=== PATIENT | male | born 1965 | race Caucasian/White ===

== ENCOUNTER 2017-11-23 10:43 | Inpatient (IN) | payer OTHER, SELFPAY ==
--- NOTE | 2017-11-23 11:37 | EKG ---
Test Date: 2017-11-23 Test Time: 10:55:01 Class A Truck Driver: GUERDA MEASUREMENT RESULTS: Intervals: Rate: 57 NM: 142 QRSD: 76 QT: 414 QTc: 402 [place]: P: 29 NM: 142 QRS: -20 T: 84 INTERPRETIVE STATEMENTS: Sinus bradycardia Inferior infarct, age undetermined Abnormal ECG No previous ECG available for comparison Electronically Signed On 11-23-17 11:36:29 CDT by Rodolfo Pierson
[2017-11-23 11:59] LABS: Protime INR 0.97
[2017-11-23 12:11] LABS: Hematocrit 43.1 % (39.6-49.0); MCV 86.5 fL (80-100); RBC Red Blood Cell Count 4.98 M/uL (4.33-5.43)
[2017-11-23 12:12] LABS: Basophils % 0.5 % (0-1.3); Eosinophils % 4.9 % (0-4.4); MCH 29.9 pg (27.0-35.0); Monocytes % 6.4 % (3.3-12.3)
[2017-11-23 12:13] LABS: Absolute Lymphocytes (CBC) 1.9 K/uL (0.7-4.9); Absolute Neutrophil 5.4 K/uL (1.8-8.0)
[2017-11-23 12:14] LABS: Absolute Monocytes 0.5 K/uL (0.1-1.3)
[2017-11-23 12:15] LABS: Magnesium 2.1 mg/dL (1.8-2.4); Potassium 3.8 mmol/L (3.5-5.1)
--- NOTE | 2017-11-23 12:25 | RAD REPORT ---
EXAM DESCRIPTION: RAD - Chest Single View - 11/23/2017 11:31 am CLINICAL HISTORY: PAIN Chest pain. COMPARISON: No comparisons FINDINGS: Portable technique limits examination quality. The lungs are grossly clear. The heart is normal in size. No displaced fractures.Sternotomy wires. IMPRESSION: No acute intrathoracic process suspected.
--- NOTE | 2017-11-23 12:36 | ER ---
Nurse's Notes [facility] Name: Archie Cortes Age: 52 yrs Sex: Male : 1965 Arrival Date: 11/23/2017 Time: 10:44 Bed 20 Private MD: Diagnosis: Unstable angina Presentation: 11/23 10:48 Presenting complaint: Patient states: c/o chest pressure that radiates to the left jaw. rb1 Pain is 6/10. Feels lightheaded, dizzy and is diaphoretic. Transition of care: patient was not received from another setting of care. Risk Assessment: Do you want to hurt yourself or someone else? Patient reports no desire to harm self or others. Initial Sepsis Screen: Does the patient meet any 2 criteria? No. Patient's initial sepsis screen is negative. Does the patient have a suspected source of infection? No. Patient's initial sepsis screen is negative. Care prior to arrival: None. 10:48 Method Of Arrival: Wheelchair rb1 10:48 Acuity: TATIANA 3 rb1 10:48 Onset of symptoms was November 23, 2017 at 05:30. rb1 Triage Assessment: 10:48 General: Appears uncomfortable, Behavior is calm, cooperative, Denies fever. Pain: rb1 Complains of pain in mid-sternal area Pain radiates to left jaw Pain currently is 6 out of 10 on a pain scale. Quality of pain is described as pressure. Neuro: Level of Consciousness is awake, alert, obeys commands, Oriented to person, place, time, situation. Neuro: Reports dizziness, lightheaded. Cardiovascular: Capillary refill < 3 seconds is brisk in bilateral fingers Rhythm is sinus rhythm. Respiratory: Airway is patent Respiratory effort is even, unlabored, Respiratory pattern is regular, symmetrical. GI: No signs and/or symptoms were reported involving the gastrointestinal system. : No signs and/or symptoms were reported regarding the genitourinary system. Derm: Skin is diaphoretic, Skin is normal, Skin temperature is warm. Musculoskeletal: Range of motion: intact in all extremities. Historical: - Allergies: 10:48 No Known Allergies; rb1 - Home Meds: 10:48 Coreg Oral [Active]; Lisinopril Oral [Active]; Plavix Oral [Active]; atorvastatin oral rb1 oral [Active]; - PMHx: 10:48 Myocardial infarction; rb1 - PSHx: 10:48 CABG; Knee surgery; rb1 - Immunization history:: Adult Immunizations up to date. - Social history:: Smoking status: Patient uses tobacco products, SMOKES MARIJUANA DAILY. - Ebola Screening: : Patient negative for fever greater than or equal to 101.5 degrees Fahrenheit, and additional compatible Ebola Virus Disease symptoms. Screenin:48 Abuse screen: Denies threats or abuse. Nutritional screening: No deficits noted. rb1 Tuberculosis screening: No symptoms or risk factors identified. Fall Risk None identified. Assessment: 10:48 General: See triage assessment. rb1 10:48 Pain: Pain began 0530 this morning. rb1 11:47 Reassessment: Patient appears in no apparent distress at this time. Patient and/or rb1 family updated on plan of care and expected duration. Pain level reassessed. Patient is alert, oriented x 3, equal unlabored respirations, skin warm/dry/pink. Patient states feeling better. 12:47 Reassessment: Patient appears in no apparent distress at this time. No changes from rb1 previously documented assessment. Family at bedside. 13:35 Reassessment: Patient appears in no apparent distress at this time. Patient and/or rb1 family updated on plan of care and expected duration. Pain level reassessed. Patient is alert, oriented x 3, equal unlabored respirations, skin warm/dry/pink. Call light within reach. 14:15 Reassessment: Patient appears in no apparent distress at this time. No changes from rb1 previously documented assessment. 14:35 Reassessment: Called report to MEHUL Negrete. Information from the [facility] was given. All rb1 questions asked and answered. 15:15 Reassessment: Patient appears in no apparent distress at this time. Patient and/or rb1 family updated on plan of care and expected duration. Pain level reassessed. Patient is alert, oriented x 3, equal unlabored respirations, skin warm/dry/pink. Pt. is waiting to be taken to the floor. We have to wait for someone to be available to transport the pt. Vital Signs: 10:48 BP 152 / 86; Pulse 64; Resp 15; Pulse Ox 98% on R/A; Weight 82.55 kg; Height 5 ft. 4 rb1 in. (162.56 cm); Pain 6/10; 11:47 BP 141 / 69; Pulse 57; Resp 12; Pulse Ox 98% on R/A; rb1 12:45 BP 140 / 86; Pulse 68; Resp 13; Pulse Ox 97% ; rb1 13:38 BP 131 / 80; Pulse 72; Resp 14; Pulse Ox 97% on R/A; rb1 14:15 BP 122 / 79; Pulse 71; Resp 21; Pulse Ox 97% on R/A; rb1 15:15 BP 122 / 80; Pulse 68; Resp 19; Pulse Ox 98% on R/A; rb1 10:48 Body Mass Index 31.24 (82.55 kg, 162.56 cm) rb1 ED Course: 10:44 Patient arrived in ED. tw3 10:48 Patient has correct armband on for positive identification. Placed in gown. Bed in low rb1 position. Call light in reach. Side rails up X 1. secured entrance monitor on. Pulse ox on. NIBP on. 10:48 Arm band placed on right wrist. rb1 10:48 Patient maintains SpO2 saturation greater than 95% on room air. rb1 10:50 Kevon Curry MD is Attending Physician. gs 10:53 Jennifer Hernandez RN is Primary Nurse. rb1 10:56 Triage completed. rb1 11:10 Inserted saline lock: 18 gauge in right antecubital area, using aseptic technique. rb1 ,using aseptic technique. Inserted by EMILY Coleman. Blood collected. 11:12 EKG done, by geothermal field technician. reviewed by Kevon Curry MD. at1 11:22 X-ray completed. Portable x-ray completed in exam room. Patient tolerated procedure ml well. 11:32 XRAY Chest (1 view) In Process Unspecified. EDMS 12:35 Julio Cesar Viveros MD is Hospitalizing Provider. gs 15:25 No provider procedures requiring assistance completed. Patient admitted, IV remains in rb1 place. Administered Medications: 12:55 Drug: Aspirin Chewable Tablet 324 mg Route: PO; rb1 13:14 Follow up: Response: No adverse reaction rb1 13:33 Drug: Lovenox 1 mg/kg Route: Sub-Q; Site: right lower abdomen; rb1 13:58 Follow up: Response: No adverse reaction rb1 Outcome: 12:35 Decision to Hospitalize by Provider. gs 15:25 Patient left the ED. rb1 15:25 Admitted to Tele accompanied by tech, family with patient, via stretcher, room 407, rb1 with chart, Report called to MEHUL Negrete 15:25 Condition: stable rb1 15:25 Instructed on the need for admit. Signatures: Dispatcher [employer] EDMS Julienne Tomas Amanda, manager of finance EKG Tat1 Jennifer Hernandez, MEHUL RN rb1 Kamaljit, Zohra tw3 Kevon Curry MD MD gs Corrections: (The following items were deleted from the chart) 15:34 15:33 Patient left the ED. rb1 rb1
--- NOTE | 2017-11-23 12:36 | EDPHYS ---
Physician Documentation [facility] Name: Archie Cortes Age: 52 yrs Sex: Male : 1965 Arrival Date: 11/23/2017 Time: 10:44 Bed 20 Private MD: ED Physician Kevon Curry HPI: 11/23 11:36 This 52 yrs old Male presents to ER via Wheelchair with complaints of Chest Pain. gs 11:36 The patient or guardian reports chest pain that is located primarily in the anterior gs chest wall. Onset: yesterday. The pain does not radiate. Associated signs and symptoms: Pertinent positives: shortness of breath. The chest pain is described as a heaviness. Duration: The patient or guardian reports multiple episodes, that wax and wane, with no pattern. Modifying factors: The symptoms are alleviated by nothing. the symptoms are aggravated by nothing. Severity of pain: At its worst the pain was moderate in the emergency department the pain has resolved. The patient has experienced similar episodes in the past, several times. Historical: - Allergies: 10:48 No Known Allergies; rb1 - Home Meds: 10:48 Coreg Oral [Active]; Lisinopril Oral [Active]; Plavix Oral [Active]; atorvastatin oral rb1 oral [Active]; - PMHx: 10:48 Myocardial infarction; rb1 - PSHx: 10:48 CABG; Knee surgery; rb1 - Immunization history:: Adult Immunizations up to date. - Social history:: Smoking status: Patient uses tobacco products, SMOKES MARIJUANA DAILY. - Ebola Screening: : Patient negative for fever greater than or equal to 101.5 degrees Fahrenheit, and additional compatible Ebola Virus Disease symptoms. ROS: 11:36 All other systems are negative. gs Exam: 11:36 Head/Face: Normocephalic, atraumatic. Eyes: Pupils equal round and reactive to light, gs extra-ocular motions intact. Lids and lashes normal. Conjunctiva and sclera are non-icteric and not injected. Cornea within normal limits. Periorbital areas with no swelling, redness, or edema. ENT: Nares patent. No nasal discharge, no septal abnormalities noted. Tympanic membranes are normal and external auditory canals are clear. Oropharynx with no redness, swelling, or masses, exudates, or evidence of obstruction, uvula midline. Mucous membranes moist. Neck: Trachea midline, no thyromegaly or masses palpated, and no cervical lymphadenopathy. Supple, full range of motion without nuchal rigidity, or vertebral point tenderness. No Meningismus. Chest/axilla: Normal chest wall appearance and motion. Nontender with no deformity. No lesions are appreciated. Cardiovascular: Regular rate and rhythm with a normal S1 and S2. No gallops, murmurs, or rubs. Normal PMI, no JVD. No pulse deficits. Respiratory: Lungs have equal breath sounds bilaterally, clear to auscultation and percussion. No rales, rhonchi or wheezes noted. No increased work of breathing, no retractions or nasal flaring. Abdomen/GI: Soft, non-tender, with normal bowel sounds. No distension or tympany. No guarding or rebound. No evidence of tenderness throughout. Back: No spinal tenderness. No costovertebral tenderness. Full range of motion. Skin: Warm, dry with normal turgor. Normal color with no rashes, no lesions, and no evidence of cellulitis. MS/ Extremity: Pulses equal, no cyanosis. Neurovascular intact. Full, normal range of motion. Neuro: Awake and alert, GCS 15, oriented to person, place, time, and situation. Cranial nerves II-XII grossly intact. Motor strength 5/5 in all extremities. Sensory grossly intact. Cerebellar exam normal. Normal gait. 11:36 Constitutional: The patient appears alert, awake. 11:36 ECG was reviewed by the Attending Physician. Vital Signs: 10:48 BP 152 / 86; Pulse 64; Resp 15; Pulse Ox 98% on R/A; Weight 82.55 kg; Height 5 ft. 4 rb1 in. (162.56 cm); Pain 6/10; 11:47 BP 141 / 69; Pulse 57; Resp 12; Pulse Ox 98% on R/A; rb1 12:45 BP 140 / 86; Pulse 68; Resp 13; Pulse Ox 97% ; rb1 13:38 BP 131 / 80; Pulse 72; Resp 14; Pulse Ox 97% on R/A; rb1 14:15 BP 122 / 79; Pulse 71; Resp 21; Pulse Ox 97% on R/A; rb1 15:15 BP 122 / 80; Pulse 68; Resp 19; Pulse Ox 98% on R/A; rb1 10:48 Body Mass Index 31.24 (82.55 kg, 162.56 cm) rb1 MDM: 11:00 Patient medically screened. 11:36 Differential diagnosis: acute myocardial infarction, pneumonia, stable angina, unstable gs angina. Data reviewed: vital signs, nurses notes. 12:34 Response to treatment: the patient's symptoms have resolved after treatment, and as a gs result, I will admit patient. 11/23 10:59 Order name: Basic Metabolic Panel; Complete Time: 12:26 11/23 10:59 Order name: CBC with Diff; Complete Time: 12: 11/23 10:59 Order name: Magnesium; Complete Time: 12: 11/23 10:59 Order name: NT PRO-BNP; Complete Time: 12: 11/23 10:59 Order name: PT-INR; Complete Time: 12: 11/23 10:59 Order name: Troponin (emerg Dept Use Only); Complete Time: 12: 11/23 10:59 Order name: XRAY Chest (1 view); Complete Time: 12: 11/23 10:59 Order name: EKG; Complete Time: 11:00 11/23 10:59 Order name: Cardiac monitoring; Complete Time: 11:30 11/23 10:59 Order name: EKG - Nurse/Tech; Complete Time: 11:30 11/23 12:53 Order name: CONS Physician Consult [facility] 11/23 12:54 Order name: CONS Physician Consult [facility] 11/23 10:59 Order name: IV Saline Lock; Complete Time: 11:30 11/23 10:59 Order name: Labs collected and sent; Complete Time: 11:30 11/23 10:59 Order name: O2 Per Protocol; Complete Time: 11: 11/23 10:59 Order name: O2 Sat Monitoring; Complete Time: 11:30 EC:36 Rate is 57 beats/min. Rhythm is regular. AK interval is normal. QRS interval is normal. Q waves are Old in leads II, III, aVF. T waves are Flattened. No ST changes noted. Clinical impression: NSR w/ Non-specific ST/T Changes. Interpreted by me. Administered Medications: 12:55 Drug: Aspirin Chewable Tablet 324 mg Route: PO; rb1 13:14 Follow up: Response: No adverse reaction rb1 13:33 Drug: Lovenox 1 mg/kg Route: Sub-Q; Site: right lower abdomen; rb1 13:58 Follow up: Response: No adverse reaction rb1 Disposition: 12:34 Critical Care:. gs Disposition: 11/23/17 12:35 Hospitalization ordered by Julio Cesar Viveros for Inpatient Admission. Preliminary diagnosis is Unstable angina. - Bed requested for Telemetry/MedSurg (Inpatient). - Status is Inpatient Admission. rb1 - Condition is Stable. - Problem is new. - Symptoms have improved. UTI on Admission? No Critical care time excluding procedures: 12:34 Critical care time: Bedside Care: 10 minutes, Consultation: 10 minutes, Family gs Intervention: 10 minutes. Total time: 30 minutes Signatures: Dispatcher [employer] Arleen Castañeda RN RN Jennifer Hernandez RN RN rb1 CurryKevon MD MD Corrections: (The following items were deleted from the chart) 14:12 12:35 Hospitalization Ordered by Julio Cesar Viveros MD for Inpatient Admission. Preliminary dw diagnosis is Unstable angina. Bed requested for Telemetry/MedSurg (Inpatient). Status is Inpatient Admission. Condition is Stable. Problem is new. Symptoms have improved. UTI on Admission? No. gs 15:33 14:12 11/23/2017 12:35 Hospitalization Ordered by Julio Cesar Viveros MD for Inpatient rb1 Admission. Preliminary diagnosis is Unstable angina. Bed requested for Telemetry/MedSurg (Inpatient). Status is Inpatient Admission. Condition is Stable. Problem is new. Symptoms have improved. UTI on Admission? No. dw
[2017-11-23] MEDS ORDERED: ASPIRIN 81 MG CHEWABLE TABLET ONE (12:59)
[2017-11-23] MEDS ORDERED: ENOXAPARIN 80 MG/0.8 ML SQ ONE (13:35)
[2017-11-23 15:40] VITALS: BMI 31.2
[2017-11-23] MEDS ORDERED: HYDROCODONE/APAP 10/325 TAB PO PRN (17:52)
[2017-11-23] MEDS ORDERED: MORPHINE 4 MG/ML SYR IV PRN (17:54)
--- NOTE | 2017-11-23 17:59 | P.HP ---
Certification for Inpatient Patient admitted to: Inpatient With expected LOS: >2 Midnights Patient will require the following post-hospital care: None Practitioner: I am a practitioner with admitting privileges, knowledge of patient current condition, hospital course, and medical plan of care. Services: Services provided to patient in accordance with Admission requirements found in Title 42 Section 412.3 of the Code of Federal Regulations Patient History Date of Service: 11/23/17 Reason for admission: chest pain History of Present Illness: 52 y/o man with HTN CAD s/p CABG(5 years ago) who presented ER chest pain this morning. Crushing, heaviness, associated diaphoresis. 11/08-10. Lasted hours, subsided in ER. First tropnin 0.12. When I saw him in ER, he has no more chest pain. States he was doing well after CABG but he has not seen a cardiology for years. Allergies No Known Allergies Allergy (Unverified 11/23/17 13:28) Home Medications: Atorvastatin Calcium [Lipitor] 80 mg PO DAILY 11/23/17 Buspirone HCl 1 tab PO BID 11/23/17 Carvedilol 3.125 mg PO BID 11/23/17 Clopidogrel Bisulfate [Plavix] 75 mg PO DAILY 11/23/17 Hydrocodone 10/APAP 325 [[place] 10/325*] 1 tab PO BID PRN 11/23/17 Loratadine [Claritin] 10 mg PO DAILY 11/23/17 Omeprazole 20 mg PO BEDTIME 11/23/17 - Past Medical/Surgical History Has patient received pneumonia vaccine in the past: Yes Diabetic: No -: CT -: CABG -: Knee Sx - Family History Father History Unknown: Yes - Social History Smoking Status: Current every day smoker Alcohol use: No CD- Drugs: No Caffeine use: Yes Place of Residence: Home Review of Systems 10-point ROS is otherwise unremarkable Physical Examination - Vital Signs Temperature: 97.7 F Blood Pressure: 141/82 Pulse: 66 Respirations: 16 Pulse Ox (%): 98 - Physical Exam General: Alert, In no apparent distress HEENT: Atraumatic, PERRLA, Mucous membr. moist/pink, EOMI, Sclerae nonicteric Neck: Supple, 2+ carotid pulse no bruit, No LAD, Without JVD or thyroid abnormality Respiratory: Clear to auscultation bilaterally, Normal air movement Cardiovascular: Regular rate/rhythm, Normal S1 S2 Gastrointestinal: Normal bowel sounds, No tenderness Musculoskeletal: No tenderness Integumentary: No rashes Neurological: Normal gait, Normal speech, Normal strength at 5/5 x4 extr, Normal tone, Normal affect Lymphatics: No axilla or inguinal lymphadenopathy - Studies Laboratory Data (last 24 hrs) 11/23/17 11:10: PT 11.4, INR 0.97 11/23/17 11:10: WBC 8.2, Hgb 14.9, Hct 43.1, Plt Count 276 11/23/17 11:10: Sodium 140, Potassium 3.8, BUN 11, Creatinine 0.90, Glucose 158 H, Magnesium 2.1 Assessment and Plan - Problems (Diagnosis) (1) Chest pain Current Visit: Yes Status: Acute Qualifiers: Chest pain type: precordial pain Qualified Code(s): R07.2 - Precordial pain (2) CAD (coronary artery disease) of artery bypass graft Current Visit: Yes Status: Chronic Qualifiers: [place] vs. transplanted heart: [place] heart Associated angina: with stable angina Qualified Code(s): I25.708 - Atherosclerosis of coronary artery bypass graft(s), unspecified, with other forms of angina pectoris (3) Hypertension Current Visit: Yes Status: Chronic Qualifiers: Hypertension type: essential hypertension Qualified Code(s): I10 - Essential (primary) hypertension - Plan --ASA/Plaxix --Lovenox --Troponins x3 --ECHO --Morphine PRN --Resume home meds --Cons Cardilogy - Advance Directives Does patient have a Living Will: No Does patient have a Durable POA for Healthcare: No
[2017-11-23 19:48] LABS: Urine Appearance CLEAR; Urine Bilirubin NEGATIVE (NEG); Urine Blood NEGATIVE (NEG); Urine Color YELLOW; Urine Glucose NEGATIVE (NEG); Urine Protein NEGATIVE (NEG); Urine pH 6.5 (5.0-7.0)
[2017-11-23 19:49] LABS: Urine Microscopic Reflex NO UMIC
[2017-11-23] MEDS: BUSPIRONE HCL 15 MG TABLET PO SCH (20:35)
[2017-11-23] MEDS: CARVEDILOL 3.125 MG TAB PO SCH (20:35)
[2017-11-23] MEDS ORDERED: ATORVASTATIN 80 MG TAB PO SCH (21:00)
[2017-11-24] MEDS ORDERED: NA CHLORIDE 0.9% 1,000 ML ONE (04:47)
[2017-11-24] MEDS ORDERED: ENOXAPARIN 80 MG/0.8 ML SQ SCH (05:00)
[2017-11-24] MEDS: CARVEDILOL 3.125 MG TAB PO SCH (05:43)
[2017-11-24] MEDS ORDERED: PANTOPRAZOLE 40MG TABLET PO SCH (06:30)
[2017-11-24] MEDS ORDERED: HEPA 1000U/500MLS 1,000 UNIT/500 ML BAG IV ONE (06:34)
[2017-11-24] MEDS ORDERED: LIDOCAINE 1% MPF 5 ML VIAL ONE (06:45)
[2017-11-24] MEDS ORDERED: FENTANYL CITR 100 MCG/2 ML ONE (06:59)
[2017-11-24] MEDS ORDERED: MIDAZOLAM HCL 2 MG/2 ML INJ ONE ×2 (06:59→07:16)
[2017-11-24] MEDS ORDERED: CLOPIDOGREL 75 MG TABLET PO SCH (09:00)
[2017-11-24] MEDS ORDERED: LORATADINE 10 MG TAB PO SCH (09:00)
[2017-11-24] MEDS: BUSPIRONE HCL 15 MG TABLET PO SCH (09:44)
[2017-11-24 12:08] VITALS: BP 109/80; TEMP 97.2
--- NOTE | 2017-11-24 13:22 | CON ---
Date of Consultation: 11/24/2017 Reason For Consultation: [id number] myocardial infarction. History Of Present Illness: Mr. Cortes is a 52-year-old white male. He is on disability because of co ronary artery disease. He has had 6 MIs in the past, multiple stents, finally had a bypass surgery a bout 3-1/2 years ago. No procedures after that. He has a history of dyslipidemia and gastroesophage al reflux disease as well as hypertension. His surgery was done by Dr. Siva Hodges in [place]. He comes in with chest pressure and tightness in the chest and the midepigastric region without any nausea, vomiting. He had diaphoresis, but no shortness of breath. In the emergency room, his EKG sh owed normal sinus rhythm with old inferior ME. Chest x-ray was negative. All his labs were negative except for a troponin of 0.87. Past Medical History: As stated above. Allergies: NONE. Review of Systems: Negative. Social History: Negative. Family History: Positive for heart disease. Medications: At home include Plavix, Coreg 3.125 mg b.i.d., Lipitor, and Prilosec. Physical Examination: Vital Signs: Stable. He is afebrile. HEENT: Negative. Neck: Supple. No bruit. Chest: Clear to auscultation and percussion. Cardiac: Revealed a regular rhythm and rate without murmurs, gallops, or rubs. Abdomen: Benign. Extremities: Revealed no clubbing, cyanosis, or edema. Diagnostic Data: As stated earlier. Impression And Plan: 1.Non-ST elevation myocardial infarction. 2.History of coronary artery disease status post coronary artery bypass grafting and stents. 3.Gastroesophageal reflux disease. 4.Dyslipidemia. An echocardiogram is pending that was ordered by Dr. Viveros. A heart catheterization will be done tod ay to rule out a stenosis in the graft or in the mammary or any worsening disease in his [place] coron hu. The patient understands the risk and the benefit of the procedure and he agrees to proceed. We will continue his Plavix and Lipitor and Prilosec as well as Coreg. We will probably have to incr ease his Coreg. Eventually, he may be a candidate for Imdur. We will see what his coronaries look l christina first. NB/MODL Voice ID: [id number] Report ID: [id number]
--- NOTE | 2017-11-24 15:42 | P.DS ---
Admission Date: 11/23/17 Discharge Date: 11/24/17 Disposition: ROUTINE DISCHARGE Discharge Condition: GOOD Reason for Admission: chest pain - Problems (1) Chest pain Onset Date: 11/24/17 Current Visit: Yes Status: Acute Qualifiers: Chest pain type: precordial pain Qualified Code(s): R07.2 - Precordial pain (2) CAD (coronary artery disease) of artery bypass graft Onset Date: 11/24/17 Current Visit: Yes Status: Chronic Qualifiers: [place] vs. transplanted heart: [place] heart Associated angina: with stable angina Qualified Code(s): I25.708 - Atherosclerosis of coronary artery bypass graft(s), unspecified, with other forms of angina pectoris (3) Hypertension Onset Date: 11/24/17 Current Visit: Yes Status: Chronic Qualifiers: Hypertension type: essential hypertension Qualified Code(s): I10 - Essential (primary) hypertension Brief History of Present Illness: 52 y/o man with HTN CAD s/p CABG(5 years ago) who presented ER chest pain this morning. Crushing, heaviness, associated diaphoresis. 8/1-10. Lasted hours, subsided in ER. First tropnin 0.12. When I saw him in ER, he has no more chest pain. States he was doing well after CABG but he has not seen a cardiology for years. Hospital Course: He has no more episodes of chest pain. His tropnin trended up. He underwent cardiac cath today without complication. Final result pending but no significant lesions that can be steneted, leaving medical management. He is discharged home in stable condition. Vital Signs/Physical Exam: Temp Pulse Resp BP Pulse Ox 97.2 F 75 18 109/80 97 11/24/17 12:00 11/24/17 12:00 11/24/17 12:00 11/24/17 12:00 11/24/17 12:00 General: Alert, In no apparent distress HEENT: Atraumatic, PERRLA, EOMI Neck: Supple, JVD not distended Respiratory: Clear to auscultation bilaterally, Normal air movement Cardiovascular: Regular rate/rhythm, Normal S1 S2 Gastrointestinal: Normal bowel sounds, No tenderness Musculoskeletal: No tenderness Integumentary: No rashes Neurological: Normal speech, Normal tone, Normal affect Lymphatics: No axilla or inguinal lymphadenopathy Laboratory Data at Discharge: WBC 8.2 K/uL (4.3-10.9) 11/23/17 11:10 Hgb 14.9 g/dL (13.6-17.9) 11/23/17 11:10 Hct 43.1 % (39.6-49.0) 11/23/17 11:10 Plt Count 276 K/uL (152-406) 11/23/17 11:10 PT 11.4 SECONDS (9.5-12.5) 11/23/17 11:10 INR 0.97 11/23/17 11:10 Sodium 140 mmol/L (136-145) 11/23/17 11:10 Potassium 3.8 mmol/L (3.5-5.1) 11/23/17 11:10 BUN 11 mg/dL (7-18) 11/23/17 11:10 Creatinine 0.90 mg/dL (0.55-1.3) 11/23/17 11:10 Glucose 158 mg/dL (74-106) H 11/23/17 11:10 Magnesium 2.1 mg/dL (1.8-2.4) 11/23/17 11:10 Troponin I 0.36 ng/mL (0.0-0.045) H 11/24/17 05:19 Home Medications: Atorvastatin Calcium [Lipitor] 80 mg PO DAILY 11/23/17 Buspirone HCl 1 tab PO BID 11/23/17 Carvedilol 3.125 mg PO BID 11/23/17 Clopidogrel Bisulfate [Plavix*] 75 mg PO DAILY 11/23/17 Hydrocodone 10/APAP 325 [[place] 10/325*] 1 tab PO BID PRN 11/23/17 Loratadine [Claritin*] 10 mg PO DAILY 11/23/17 Omeprazole 20 mg PO BEDTIME 11/23/17 Diet: ADA Activity: Ad sharif Followup: Regan Hayward MD [ACTIVE - CAN ADMIT] - Time spent managing pt's care (in minutes): 35
--- NOTE | 2017-11-24 18:25 | OP ---
Date of Procedure: 11/24/2017 Surgeon: Regan Hayward MD Admitted to Dr. Viveros's service on 11/23/2017. The patient was brought into the dental laboratory worker on 11/25/19 18 because of non-ST elevation myocardial infarction. Procedures: Left heart catheterization, injection of the left internal mammary artery and saphenous vein graft to the right coronary artery and obtuse marginal. Indication: Non-ST elevation KS. Procedure In Detail: The patient was prepped and draped in the routine sterile fashion, given 2 mg o f Versed and 25 of fentanyl for sedation. A 6-Irish González catheter were used to select the left m ain and the right main. He had a 99% ostial left main. He had a 70% stenosis in the mid and distal RCA. He had a stent in the circumflex with 100% occlusion. The JR4 catheter was used to select the WINTERS and vein graft. The WINTERS was open to the LAD, was connected to the distal LAD. The saphenous v ein graft to the OM 1 was opened. Saphenous vein graft to the RCA distal was open. LV-gram was done using a pigtail showing mild global hypokinesis. End-diastolic pressure was 5. Ejection fraction 4 5%. Blood pressure was 111/77. There were no complications. Blood Loss: 5 cc. Postoperative Diagnosis: Severe coronary artery disease. Plan: For medical therapy. The patient will be observed for 2 hours and sent home. I will adjust h is medical regimen. He can go home today and I will see him in the office in 2 weeks. JAIRON/VENKATAL Voice ID: [id number] Report ID: [id number]
[2017-11-24 20:18] VITALS: O2SAT 100
--- NOTE | 2017-11-27 08:00 | ECHO ---
HEIGHT: 5 ft 4 in WEIGHT: 182 lb 0 oz DATE OF STUDY: 11/24/[address]: Julio Cesar Viveros MD 2-DIMENSIONAL: YES M.MODE: YES DOPPLER: YES COLOR FLOW: YES TDS: NO PORTABLE: NO DEFINITY: NO BUBBLE STUDY: NO DIAGNOSIS: CHEST PAIN CARDIAC HISTORY: CATHERIZATION: YES SURGERY: YES PROSTHETIC VALVE: NO PACEMAKER: NO MEASUREMENTS (cm) DIASTOLIC (NORMALS) SYSTOLIC (NORMALS) IVSd 1.1 (0.6-1.2) LA Diam 3.5 (1.9-4.0) LVEF 61% LVIDd 4.4 (3.5-5.7) LVIDs 3.0 (2.0-3.5) %FS 32% LVPWd 1.3 (0.6-1.2) Ao Diam 2.9 (2.0-3.7) 2 DIMENSIONAL ASSESSMENT: RIGHT ATRIUM: NORMAL LEFT ATRIUM: NORMAL RIGHT VENTRICLE: NORMAL LEFT VENTRICLE: NORMAL TRICUSPID VALVE: NORMAL MITRAL VALVE: NORMAL PULMONIC VALVE: NORMAL AORTIC VALVE: NORMAL PERICARDIAL EFFUSION: NONE AORTIC ROOT: NORMAL LEFT VENTRICULAR WALL MOTION: NORMAL DOPPLER/COLOR FLOW: NORMAL COMMENTS: NORMAL 2D ECHOCARDIOGRAM WITH DOPPLER. NO WALL MOTION ABNORMALITY. NO EFFUSION. TECHNOLOGIST: Jignesh JUNIOR
== END 2017-11-24 16:38 | disposition home or self-care (01) | DRG 281 ==
LOC: ER 10:43 → ERHOLD 12:52 → 4TH 14:48
PROVIDERS: ADMIT Internal Medicine Hematology & Oncology; ATTEND Internal Medicine Hematology & Oncology
PROC: 4A023N7 Measurement of Cardiac Sampling and Pressure, Left Heart, Percutaneous Approach (ICD-10-PCS; principal; 2017-11-24)
PROC: B2131ZZ Fluoroscopy of Multiple Coronary Artery Bypass Grafts using Low Osmolar Contrast (ICD-10-PCS; 2017-11-24)
PROC: B2111ZZ Fluoroscopy of Multiple Coronary Arteries using Low Osmolar Contrast (ICD-10-PCS; 2017-11-24)
PROC: B2151ZZ Fluoroscopy of Left Heart using Low Osmolar Contrast (ICD-10-PCS; 2017-11-24)
DX: I21.4 Non-ST elevation (NSTEMI) myocardial infarction (principal); I25.728 Atherosclerosis of autologous artery coronary artery bypass graft(s) with other forms of angina pectoris; I25.718 Atherosclerosis of autologous vein coronary artery bypass graft(s) with other forms of angina pectoris; Z95.5 Presence of coronary angioplasty implant and graft; I10 Essential (primary) hypertension; I25.2 Old myocardial infarction; E78.5 Hyperlipidemia, unspecified; K21.9 Gastro-esophageal reflux disease without esophagitis; F17.200 Nicotine dependence, unspecified, uncomplicated
CPT/HCPCS: 36415; 71045; 80048; 81003; 83735; 83880; 84484; 85025; 85610; 93005; 93306; 93458; 96372; 99285; C1760; C1893; J1650; J2250; J3010; J7030

== ENCOUNTER 2020-03-11 05:50 | Observation (INO) | payer OTHER ==
[2020-03-04 08:22] LABS: Absolute Lymphocytes (CBC) 2.3 K/uL (0.7-4.9); Basophils % 0.8 % (0-1.3); Hematocrit 41.4 % (39.6-49.0); Lymphocytes % 18.6 % (15.3-44.8); MPV 8.3 fL (7.6-11.3); RBC Red Blood Cell Count 4.77 M/uL (4.33-5.43)
[2020-03-04 08:27] LABS: Protime INR 0.92
[2020-03-04 08:32] LABS: BUN Blood Urea Nitrogen 12 mg/dL (7-18); Bicarbonate 25 mmol/L (21-32); Glucose Level 118 mg/dL (74-106); Potassium 4.1 mmol/L (3.5-5.1); Sodium Level 139 mmol/L (136-145)
--- NOTE | 2020-03-04 10:00 | RAD REPORT ---
EXAM DESCRIPTION: Bre Ta (2 Views)03/04/2020 9:53 am CLINICAL HISTORY: Preop for knee replacement COMPARISON: 2018 FINDINGS: The lungs appear clear of acute infiltrate. The heart is normal size. Post surgical lepe es involve the chest IMPRESSION: No acute abnormalities displayed
--- OUTSIDE RECORDS SUMMARY | 2020-03-11 05:53 | XMS REPORT ---
:1965 Author Organization [facility] Address [address] [place] [address] Care Team Providers Name Role Phone Trivedi Unavailable [phone] PROBLEMS Type Condition ICD9-CM [id number] Onset Condition SNOMED Code Notes Code Code Dates Status Problem Heart disease I51.9 Active 87237677 Problem Sinus problem J34.9 Active Problem Hyperlipemia E78.5 Active 26296551 Problem Depression with F41.8 Active 66915205 anxiety Problem Anxiety F41.9 Active 35919438 Problem Osteoporosis M81.0 Active 07598016 Problem Osteoarthritis of M15.9 Active 256319560 multiple joints, unspecified osteoarthritis type Problem Hypertension I10 Active 67881469 Problem Decreased hearing H91.92 Active 822865771 of left ear Problem Subclinical E03.9 Active 22916955 hypothyroidism Problem Moderately severe F32.2 Active 500336923 depression Problem Leukocytosis, D72.829 Active 884745435 unspecified type Problem Body temperature R68.89 Active 375048784 low Problem Presence of Z95.5 Active 594072468 coronary angioplasty implant and graft Problem Primary M17.12 Active 239459962256117 osteoarthritis of left knee Problem Seasonal allergic J30.2 Active 688097740 rhinitis, unspecified trigger Problem Gastroesophageal K21.9 Active 869984719 reflux disease, esophagitis presence not specified Problem Atherosclerotic 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 643176513 heart disease of [place] coronary artery without angina pectoris Problem Daytime somnolence R40.0 Active 139058972161 Problem Vitamin D E55.9 Active 43536663 deficiency Problem Allergic rhinitis, J30.9 Active 91230633 unspecified seasonality, unspecified trigger Problem Other chronic pain G89.29 Active 06589983 ALLERGIES No Known Allergies ENCOUNTERS from 1965 to 2020-01-14 Encounter Location Date Provider Diagnosis [facility] [address] [place] Dec, Pravin Farooq Hypertension I10 [facility] [address] [address] IMMUNIZATIONS No Information SOCIAL HISTORY Tobacco Use: Social History Observation Description Date Details (start date - stop date) Current Smoker Sex Assigned At : Social History Observation Description Sex Assigned At Unknown PHQ9 Question Answer Notes Little interest or pleasure in doing things More than half t he days Feeling down, depressed, or hopeless Not at all Trouble falling or staying asleep or sleeping too much Nearl y every day Feeling tired or having little energy Nearly every day Poor appetite or overeating Not at all Feeling bad about yourself, or that you are a failure, Not a t all or have let yourself or your family down Trouble concentrating on things, such as reading the Not at all newspaper or watching television Moving or speaking so slowly that other people could Not at all have noticed; or the opposite, being so fidgety or restless that you have been moving around a lot more than usual Total Score 8 Interpretation Mild Depression Thoughts that you would be better off or of Not at all hurting yourself in some way Alcohol Screen Question Answer Notes Did you have a drink containing alcohol in the past Yes year? Points 1 Interpretation Negative How often did you have a drink containing alcohol in Monthly or less (1 point) the past year? Tobacco Use/Smoking Question Answer Notes Additional Findings: Tobacco User Moderate cigarette smoker (10-19 cigs/day) Are you a current smoker REASON FOR REFERRAL No Information VITAL SIGNS No information MEDICATIONS Medication SIG (Take, Route, Start Date End Date Status Frequency, Duration) Duloxetine HCl 60 MG TAKE ONE (1) CAPSULE(S) Active BY MOUTH ONCE A DAY. Doxycycline Hyclate Not-Taki ng Clopidogrel Bisulfate Not-Ta magdy Plavix 75 MG 1 tablet Orally Once a Not-T aking day for 90 days Atorvastatin Calcium Active Metformin HCl 500 MG 1 tablet with a meal Active Orally twice a day for 90 days Lipitor 80 MG 1 tablet Orally Once a Not- Taking day for 90 days Cetirizine HCl 10 MG TAKE ONE (1) TABLET(S) Active BY MOUTH ONCE A DAY. Carvedilol 6.25 MG as directed Orally twice Active a day for 90 days BusPIRone HCl 15 MG 1 tablet Orally Twice a Not-Taking day Hydrocodone-Acetaminophen 1 tablet as needed Not-Taking 10-325 MG Orally every 6 hrs Sulfamethoxazole-Trimethopri Not-Taking m Albuterol Sulfate HFA 108 2 puffs Inhalation every Apr, Not-Taking (90 Base) MCG/ACT 6 hours prn sob for 30 days Flonase 50 MCG/ACT 2 spray in each nostril Not-Taking Nasally Once a day for 30 day(s) Aspirin 81 MG 1 tablet Orally Once a Acti ve day for 90 days Lisinopril 2.5 MG TAKE ONE (1) TABLET(S) Active BY MOUTH ONCE A DAY. Levothyroxine Sodium 50 MCG TAKE ONE (1) TABLET(S) Active BY MOUTH EVERY MORNING ON AN EMPTY STOMACH. Amoxicillin-Pot Clavulanate Not-Taking Fluticasone Propionate Not-T aking Carvedilol 6.25 MG as directed Orally twice Unknown a day for 90 Prilosec 20 MG 1 capsule Orally Once a No t-Taking day Duloxetine HCl 60 MG 1 capsule Orally Once a Not-Taking day for 30 days LISINOPRIL 2.5 ONE ORAL DAILY for 90 Acti ve days PROCEDURES No Information RESULTS No Results REASON FOR VISIT pcp clearance request MEDICAL (GENERAL) HISTORY Type Description Date Medical History Hypertension Medical History Hyperlipemia Medical History Anxiety Medical History Heart disease Medical History Osteoporosis Medical History Sinus problem Medical History Hypertension Medical History Hyperlipemia Medical History Anxiety Medical History Heart disease Medical History Osteoporosis Medical History Sinus problem Surgical History Knee Surgery Surgical History Heart Cath Surgical History Heart Surgery-Triple Bypass Goals Section No Information Health Concerns No Information MEDICAL EQUIPMENT No Information MENTAL STATUS No Information FUNCTIONAL STATUS No Information ASSESSMENTS Encounter Date Diagnosis Notes Dec, Hypertension (ICD-10 - I10) PLAN OF TREATMENT Next Appt Details Provider Name:Gale Moreno, 2020-02-11 09:4 5:00 AM, [address], [address], [place], [address], Provider Name:Gale Moreno 2020-02-20 09:4 0:00 AM, [address], [address], [place], [address], Insurance Providers Payer Name Payer Payer Insured Name Patient Coverage Covera ge End Address Phone Relationship to Start Date Stanley e Insured [facility] [address] [address] [phone] [facility] [address] [phone]
--- OUTSIDE RECORDS SUMMARY | 2020-03-11 05:53 | XMS REPORT ---
:1965 Author Organization [facility] Address [address] [place] [address] Care Team Providers Name Role Phone Trivedi Unavailable [phone] PROBLEMS Type Condition ICD9-CM [id number] Onset Condition SNOMED Code Notes Code Code Dates Status Problem Heart disease I51.9 Active 01207244 Problem Sinus problem J34.9 Active Problem Hyperlipemia E78.5 Active 00877897 Problem Depression with F41.8 Active 80080674 anxiety Problem Anxiety F41.9 Active 29133110 Problem Osteoporosis M81.0 Active 41785900 Problem Osteoarthritis of M15.9 Active 028463598 multiple joints, unspecified osteoarthritis type Problem Hypertension I10 Active 68469096 Problem Decreased hearing H91.92 Active 502325753 of left ear Problem Subclinical E03.9 Active 16307858 hypothyroidism Problem Moderately severe F32.2 Active 272222391 depression Problem Leukocytosis, D72.829 Active 351734574 unspecified type Problem Body temperature R68.89 Active 958440617 low Problem Presence of Z95.5 Active 091715623 coronary angioplasty implant and graft Problem Primary M17.12 Active 863266230866955 osteoarthritis of left knee Problem Seasonal allergic J30.2 Active 805576898 rhinitis, unspecified trigger Problem Gastroesophageal K21.9 Active 990741583 reflux disease, esophagitis presence not specified Problem Atherosclerotic 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 974161177 heart disease of [place] coronary artery without angina pectoris Problem Daytime somnolence R40.0 Active 114801972919 Problem Vitamin D E55.9 Active 58900295 deficiency Problem Allergic rhinitis, J30.9 Active 50514135 unspecified seasonality, unspecified trigger Problem Other chronic pain G89.29 Active 95627861 ALLERGIES No Known Allergies ENCOUNTERS from 1965 to 2020-01-07 Encounter Location Date Provider Diagnosis [facility] [address] Dec, Pravin Trivedi Pain in joint of left [facility] [address] knee M25.562 and [place], [place] Primary osteoar thritis [address] of left knee M1 7.12 IMMUNIZATIONS No Information SOCIAL HISTORY Tobacco Use: [...] REASON FOR REFERRAL No Information VITAL SIGNS Height 64 in Dec, Weight 187.6 lbs Dec, Temperature 97.3 degrees Fahrenheit Dec, BMI 32.2 kg/m2 Dec, Blood pressure systolic 118 mm Hg Dec, Blood pressure diastolic 78 mm Hg Dec, MEDICATIONS Medication SIG (Take, Route, Start Date [...] Information RESULTS No Results REASON FOR VISIT New Pt, chronic L knee pain MEDICAL (GENERAL) HISTORY Type Description Date Medical [...] Information ASSESSMENTS Encounter Date Diagnosis Notes Dec, Primary osteoarthritis of left knee (ICD -10 - M17.12) Dec, Pain in joint of left knee (ICD-10 - M25 .562) PLAN OF TREATMENT Treatment Notes Assessment Notes Clinical Notes Primary osteoarthritis of left knee I discussed with the pat ient at length his diagnosis and treatment plan and he expressed understanding. We discussed both operative and nonoperative treatment. He has failed conservative treatment measures including corticosteroid/viscosupplementation injections, use of NSAIDs and home exercise program. He reports continued pain affecting his ADLs. We will proceed with left total knee arthroplasty. I discussed with the patient risks and benefits associated with the procedure at length as well as postoperative rehabilitation and he expressed understanding. We will begin with CT of the left knee per [facility] protocol and will followup in 1 month for scheduling and reevaluation. Treatment Notes Test Name Order Date X-RAY EXAM KNEE 1 OR 2 VIEWS ([id number]) 2020-01-07 X-RAY EXAM KNEE STANDING VIEW ([id number]) 2020-01-07 Next Appt Details 4 Weeks Reason: Provider Name:Gale Moreno 2020-02-11 09:4 5:00 AM, [address], [address], [place], [address], Provider Name:Gale Moreno 2020-02-20 09:4 0:00 AM, [address], [address], [place], [address], Insurance Providers Payer Name Payer Payer Insured Name Patient Coverage Covera End Address Phone Relationship to Start Date Stanley e Insured [employer] [address] [address] [phone] Archie Cortes self [facility] [address] [phone]
--- OUTSIDE RECORDS SUMMARY | 2020-03-11 05:53 | XMS REPORT ---
:1965 Author Organization [facility] Address [address] [place] [address] Care Team Providers Name Role Phone Trivedi Unavailable [phone] PROBLEMS Type Condition ICD9-CM AQQ79-SC Onset Condition SNOMED Code Notes Code Code Dates Status Problem Heart disease I51.9 Active 30126953 Problem Sinus problem J34.9 Active Problem Hyperlipemia E78.5 Active 72352160 Problem Depression with F41.8 Active 99870048 anxiety Problem Anxiety F41.9 Active 95610902 Problem Osteoporosis M81.0 Active 09558898 Problem Osteoarthritis of M15.9 Active 732230841 multiple joints, unspecified osteoarthritis type Problem Hypertension I10 Active 51109227 Problem Decreased hearing H91.92 Active 341139961 of left ear Problem Subclinical E03.9 Active 46372672 hypothyroidism Problem Moderately severe F32.2 Active 479404493 depression Problem Leukocytosis, D72.829 Active 626023402 unspecified type Problem Body temperature R68.89 Active 035000960 low Problem Presence of Z95.5 Active 875874503 coronary angioplasty implant and graft Problem Primary M17.12 Active 159140255419906 osteoarthritis of left knee Problem Seasonal allergic J30.2 Active 334634125 rhinitis, unspecified trigger Problem Gastroesophageal K21.9 Active 851650584 reflux disease, esophagitis presence not specified Problem Atherosclerotic 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 411176728 heart disease of [place] coronary artery without angina pectoris Problem Daytime somnolence R40.0 Active 778953853497 Problem Vitamin D E55.9 Active 41964183 deficiency Problem Allergic rhinitis, J30.9 Active 97183775 unspecified seasonality, unspecified trigger Problem Other chronic pain G89.29 Active 42263919 ALLERGIES No Known Allergies ENCOUNTERS from 1965 to 2020-01-17 Encounter Location Date Provider Diagnosis [facility] [address] [place], [place] [address] IMMUNIZATIONS No Information SOCIAL HISTORY Tobacco Use: [...] Information RESULTS No Results REASON FOR VISIT MRI- TKA MEDICAL (GENERAL) HISTORY Type Description Date Medical [...] No Information FUNCTIONAL STATUS No Information ASSESSMENTS No Information PLAN OF TREATMENT Next Appt Details Provider Name:Gale Moreno 2020-02-11 09:4 5:00 AM, [address], [address], [place], [address], Provider Name:Gale Moreno 2020-02-20 09:4 0:00 AM, [address], [address], [place], [address], Insurance Providers Payer Name Payer Payer Insured Name Patient Coverage Covera ge End Address Phone Relationship to Start Date Stanley e Insured [employer] [address] [address] [phone] Archie Cortes self [facility] [phone]
--- OUTSIDE RECORDS SUMMARY | 2020-03-11 05:53 | XMS REPORT ---
:1965 Author Organization [facility] Address [address] [place] [address] Care Team Providers Name Role Phone Trivedi Unavailable [phone] PROBLEMS Type Condition ICD9-CM JVV09-IT Onset Condition SNOMED Code Notes Code Code Dates Status Problem Heart disease I51.9 Active 42640499 Problem Sinus problem J34.9 Active Problem Hyperlipemia E78.5 Active 25997655 Problem Depression with F41.8 Active 28612837 anxiety Problem Anxiety F41.9 Active 28084684 Problem Osteoporosis M81.0 Active 10655977 Problem Osteoarthritis of M15.9 Active 377655027 multiple joints, unspecified osteoarthritis type Problem Hypertension I10 Active 35665251 Problem Decreased hearing H91.92 Active 650141939 of left ear Problem Subclinical E03.9 Active 05243270 hypothyroidism Problem Moderately severe F32.2 Active 436327638 depression Problem Leukocytosis, D72.829 Active 527607058 unspecified type Problem Body temperature R68.89 Active 088753862 low Problem Presence of Z95.5 Active 836517551 coronary angioplasty implant and graft Problem Primary M17.12 Active 250092705302376 osteoarthritis of left knee Problem Seasonal allergic J30.2 Active 764754715 rhinitis, unspecified trigger Problem Gastroesophageal K21.9 Active 755829701 reflux disease, esophagitis presence not specified Problem Atherosclerotic 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 978943377 heart disease of [place] coronary artery without angina pectoris Problem Daytime somnolence R40.0 Active 812772451875 Problem Vitamin D E55.9 Active 18413507 deficiency Problem Allergic rhinitis, J30.9 Active 97043702 unspecified seasonality, unspecified trigger Problem Other chronic pain G89.29 Active 92616612 ALLERGIES No Known Allergies ENCOUNTERS from 1965 to 2020-03-01 Encounter Location Date Provider Diagnosis [facility] [address] Feb, Pravin Pacheco t pain, right [facility] [address] [place] M25.531 ; Pr mohan [facility], [place] osteoarthritis of left [address] knee M17.12 ; P ain in joint of left k nee M25.562 and Con tusion of right wrist, initial encounter S60.2 11A IMMUNIZATIONS No Information SOCIAL HISTORY Tobacco Use: [...] No Information VITAL SIGNS Height 64 in Feb, Weight 188 lbs Feb, Temperature 96.6 degrees Fahrenheit Feb, BMI 32.27 kg/m2 Feb, Blood pressure systolic 126 mm Hg Feb, Blood pressure diastolic 82 mm Hg Feb, MEDICATIONS Medication SIG (Take, Route, Notes Start Date End Date Status Frequency, Duration) Amoxicillin-Pot Not-Takin g Clavulanate Levothyroxine Sodium 50 TAKE ONE (1) Active MCG TABLET(S) BY MOUTH EVERY MORNING ON AN EMPTY STOMACH. Fluticasone Propionate No t-Taking Prilosec 20 MG 1 capsule Orally Once Not-Taking a day Lisinopril 2.5 MG TAKE ONE (1) Activ e TABLET(S) BY MOUTH ONCE A DAY. Carvedilol 6.25 MG as directed Orally Active twice a day for 90 days Duloxetine HCl 60 MG TAKE ONE (1) Ac tive CAPSULE(S) BY MOUTH ONCE A DAY. Lipitor 80 MG 1 tablet Orally Once N ot-Taking a day for 90 days Clopidogrel Bisulfate Not -Taking Carvedilol 6.25 MG as directed Orally Unknown twice a day for 90 Cetirizine HCl 10 MG TAKE ONE (1) Ac tive TABLET(S) BY MOUTH ONCE A DAY. Flonase 50 MCG/ACT 2 spray in each N ot-Taking nostril Nasally Once a day for 30 day(s) Aspirin 81 MG 1 tablet Orally Once A ctive a day for 90 days Metformin HCl 500 MG 1 tablet with a meal Active Orally twice a day for 90 days Atorvastatin Calcium Acti ve LISINOPRIL 2.5 ONE ORAL DAILY for 90 Active days Plavix 75 MG 1 tablet Orally Once No t-Taking a day for 90 days Sulfamethoxazole-Trimetho Not-Taking prim Doxycycline Hyclate Not-T aking Albuterol Sulfate HFA 108 2 puffs Inhalation Apr, Not-Taking (90 Base) MCG/ACT every 6 hours prn sob for 30 days BusPIRone HCl 15 MG 1 tablet Orally Twice Not-Taking a day Hydrocodone-Acetaminophen 1 tablet as needed Not-Taking 10-325 MG Orally every 6 hrs PROCEDURES No Information RESULTS No Results REASON FOR VISIT F/U NEW PROB: RIGHT WRIST PAIN- XRAY, F/U LEFT KNEE- DISCUSS TKA FOR 03/11/2020 MEDICAL (GENERAL) HISTORY Type Description Date Medical [...] STATUS No Information ASSESSMENTS Encounter Date Diagnosis Assessment Notes Treatment Notes Treatm ent Clinical Notes Feb, Wrist pain, right (ICD-10 - M25.531) Feb, Primary I discussed with the osteoarthritis of patient at length left knee (ICD-10 - his diagnosis and M17.12) treatment plan and he expressed understanding. We discussed both operative and nonoperative treatment. He has failed conservative treatment measures including corticosteroid/visco supplementation injections, use of NSAIDs and home exercise program. He reports continued pain affecting his ADLs. We will proceed with left total knee arthroplasty. I discussed with the patient risks and benefits associated with the procedure at length as well as postoperative rehabilitation and he expressed understanding. We will proceed with surgery in 3 weeks. All questions were answered. Feb, Pain in joint of left knee (ICD-10 - M25.562) Feb, Contusion of right -proceed with RICE wrist, initial therapy encounter (ICD-10 - -may purchase OTC S60.211A) brace if pain worsens -work on ROM exercises and progress with activities as tolerated -f/u as needed PLAN OF TREATMENT Treatment Notes Assessment Notes [...] rehabilitation and he expressed understanding. We will proceed with surgery in 3 weeks. All questions were answered. Contusion of right wrist, initial -proceed with RICE therapy -may encounter purchase OTC brace if pain worsens-work on ROM exercises and progress with activities as tolerated-f/u as needed Treatment Notes Test Name Order Date X-RAY EXAM WRIST MIN 3 VIEWS ([id number]) 2020-03-01 Next Appt Details 2 weeks postop Reason: Provider Name:Gale Moreno, 2020-04-02 08:0 0:00 AM, [address], [address], [place], [address], Insurance Providers Payer Name Payer Payer Insured Name Patient Coverage Covera ge End Address Phone Relationship to Start Date Stanley e Insured [employer] [address] [address] [phone] Archie Cortes self [facility] [address] [phone]
--- OUTSIDE RECORDS SUMMARY | 2020-03-11 05:53 | XMS REPORT | Continuity of Care Document ---
:1965 Author Organization [facility] t Address [address] [place] [address] Care Team Providers Name Role Phone Unavailable Unavailable Unavailable Problems This patient has no known problems. Allergies, Adverse Reactions, Alerts This patient has no known allergies or adverse reactions. Medications Ordered Filled Start Stop Current Ordering Indication Dosage Frequency Signature Comments Components Source Medication Medication Date Date Medication? Clinician (SIG) Name Name Metformin Metformin Yes Na Moreno [address] [facility] HCl HCl 5-12 with a [facility] Flonase Flonase 0 Yes Na Moreno [address] [facility] 2-12 each [facility] nostril [facility] Cetirizine Cetirizine 2020- No Na Moreno [address] [facility] HCl HCl 2-12 08-10 [facility] Albuterol Albuterol 0 Yes Na Moreno [address] [facility] Sulfate HFA Sulfate HFA 1-29 [facility] - [facility] LISINOPRIL LISINOPRIL 2017-04 2020- No Na Moreno ONE [facility] 1-05 05-04 [facility] Plavix Plavix Yes Na Moreno [address] [facility] Carvedilol Carvedilol Yes Na Moreno as [facility] directed [facility] Levothyroxi Levothyroxi Yes Na Moreno [address] [facility] ne Sodium ne Sodium on an Luke s - empty [facility] stomach in l the Outpati morning ent Clinics BusPIRone BusPIRone Yes Na Moreno [address] [facility] HCl HCl [facility] Prilosec Prilosec Yes Na Moreno [address] [facility] Lipitor Lipitor Yes Na Moreno [address] [facility] Hydrocodone Hydrocodone Yes Na Moreno [address] [facility] -Acetaminop -Acetaminop as needed [facility] Carvedilol Carvedilol Yes Na Moreno as [facility] Plavix Plavix Yes Na Moreno [address] [facility] Duloxetine Duloxetine Yes Na Moreno [address] [facility] HCl HCl [facility] Aspirin Aspirin Yes Na Moreno [address] [facility] Duloxetine Duloxetine Yes Na Moreno TAKE ONE [facility] HCl HCl (1) [facility] CAP[facility]LE(S[facility] BY MOUTH l ONCE A Outpati DAY. ent Clinics Procedures This patient has no known procedures. Encounters Start End Encounter Admission Attending Care Care Encounter Source Date/Time Date/Time Type Type Clinicians Facility Department ID 2020-03-03 2020-03-03 Outpatient [facility] [id number] [facility] 2020-02-20 2020-02-20 Outpatient [facility] [id number] 2020-01-16 2020-01-16 Outpatient [facility] [id number] [facility] 2020-01-01 2020-01-01 Outpatient [facility] [id number] [facility] 2019-12-31 2019-12-31 Outpatient [facility] [id number] [facility] 2019-11-20 2019-11-20 [facility] [id number] [facility] 08:20:00 08:20:[place] [facility] - [facility] l Medicine Outpati ent Clinics 2019-11-14 2019-11-14 [facility] [id number] [address] 10:18:00 10:18:00 [place] [facility] - Drive [facility] Medicine Outpati ent Clinics 2019-08-20 2019-08-20 [facility] [id number] 09:40:00 09:40:00 [place] [facility] - Drive [facility] l Medicine Outpati ent Clinics 2019-05-22 2019-05-22 [facility] [id number] 09:40:00 09:40:00 [place] - Drive [facility] Medicine Outpati ent Clinics 2019-05-08 2019-05-08 [facility] [id number] [facility] 08:20:00 08:20:00 [place] - [address] [facility] l Medicine Outpati ent Clinics 2019-02-13 2019-02-13 [facility] [id number] 15:58:00 15:58:00 [place] - [address] [facility] Medicine Outpati ent Clinics 2019-02-12 2019-02-12 [facility] [id number] [address] 08:20:00 08:20:00 [place] [facility] - Drive [facility] Medicine Outpati ent Clinics 2018-11-28 2018-11-28 [facility] [id number] [address] 12:43:00 12:43:00 [place] [facility] - [address] [facility] Medicine Outpati ent Clinics 2018-11-13 2018-11-13 [facility] [id number] [address] 08:40:00 08:40:00 [place] [facility] - Drive [facility] Medicine Outpati ent Clinics 2018-05-07 2018-05-07 [facility] [id number] [address] 08:45:00 08:45:00 t [employer] [facility] [employer] [facility] 2018-03-22 2018-03-22 Outpatient Claudio [facility] [id number] [facility] 09:45:00 09:45:00 t [employer] [facility] ent Clinics Results This patient has no known results.
--- OUTSIDE RECORDS SUMMARY | 2020-03-11 05:54 | XMS REPORT ---
:1965 Author Organization [facility] Address [address] [place] [address] Care Team Providers Name Role Phone Trivedi Unavailable [phone] PROBLEMS Type Condition ICD9-CM [id number] Onset Condition SNOMED Code Notes Code Code Dates Status Problem Heart disease I51.9 Active 16205792 Problem Sinus problem J34.9 Active Problem Hyperlipemia E78.5 Active 80631412 Problem Depression with F41.8 Active 34603274 anxiety Problem Anxiety F41.9 Active 54627559 Problem Osteoporosis M81.0 Active 77648432 Problem Osteoarthritis of M15.9 Active 441468507 multiple joints, unspecified osteoarthritis type Problem Hypertension I10 Active 24482631 Problem Decreased hearing H91.92 Active 290269836 of left ear Problem Subclinical E03.9 Active 14468235 hypothyroidism Problem Moderately severe F32.2 Active 305209956 depression Problem Leukocytosis, D72.829 Active 415689400 unspecified type Problem Body temperature R68.89 Active 335552030 low Problem Presence of Z95.5 Active 276279806 coronary angioplasty implant and graft Problem Primary M17.12 Active 192872588045150 osteoarthritis of left knee Problem Seasonal allergic J30.2 Active 355713296 rhinitis, unspecified trigger Problem Gastroesophageal K21.9 Active 282950792 reflux disease, esophagitis presence not specified Problem Atherosclerotic 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 065357115 heart disease of [place] coronary artery without angina pectoris Problem Daytime somnolence R40.0 Active 329426409649 Problem Vitamin D E55.9 Active 31295763 deficiency Problem Allergic rhinitis, J30.9 Active 70860096 unspecified seasonality, unspecified trigger Problem Other chronic pain G89.29 Active 60694303 ALLERGIES No Known Allergies ENCOUNTERS from 1965 to 2020-03-09 Encounter Location Date Provider Diagnosis [facility] [address] Feb, Pravin Farooq Pain in joint of left Joint [facility] of [address] knee M25.562 and [place], [place] Primary osteoar thritis [id number] of left knee M1 7.12 IMMUNIZATIONS No [...] in Feb, Weight 188 lbs Feb, Temperature 97.1 degrees Fahrenheit Feb, BMI 32.27 kg/m2 Feb, Blood pressure systolic 110 mm Hg Feb, Blood pressure diastolic 74 mm Hg Feb, MEDICATIONS Medication SIG (Take, Route, Notes Start Date End Date Status Frequency, Duration) Carvedilol 6.25 MG as directed Orally Active twice a day for 90 days Prilosec 20 MG 1 capsule Orally Once Not-Taking a day Xarelto 10 MG 1 tablet Orally Once Feb, Active a day for 11 days Aspirin 81 MG 1 tablet Orally Once A ctive a day for 90 days Fluticasone Propionate No t-Taking Flonase 50 MCG/ACT 2 spray in each N ot-Taking nostril Nasally Once a day for 30 day(s) Atorvastatin Calcium Acti ve BusPIRone HCl 15 MG 1 tablet Orally Twice Not-Taking a day Duloxetine HCl 60 MG TAKE ONE (1) Ac tive CAPSULE(S) BY MOUTH ONCE A DAY. Sulfamethoxazole-Trimetho Not-Taking prim Clopidogrel Bisulfate Not -Taking Plavix 75 MG 1 tablet Orally Once No t-Taking a day for 90 days Cetirizine HCl 10 MG TAKE ONE (1) Ac tive TABLET(S) BY MOUTH ONCE A DAY. Doxycycline Hyclate Not-T aking Hydrocodone-Acetaminophen 1 tablet as needed Not-Taking 10-325 MG Orally every 6 hrs Carvedilol 6.25 MG as directed Orally Unknown twice a day for 90 Amoxicillin-Pot Not-Takin g Clavulanate Metformin HCl 500 MG 1 tablet with a meal Active Orally twice a day for 90 days Albuterol Sulfate HFA 108 2 puffs Inhalation Apr, Not-Taking (90 Base) MCG/ACT every 6 hours prn sob for 30 days [place] 7.5-325 MG 1 PO Q Orally 4-6 HRS Feb, Active PRN PAIN Lipitor 80 MG 1 tablet Orally Once N ot-Taking a day for 90 days Levothyroxine Sodium 50 TAKE ONE (1) Active MCG TABLET(S) BY MOUTH EVERY MORNING ON AN EMPTY STOMACH. LISINOPRIL 2.5 ONE ORAL DAILY for 90 Active days PROCEDURES No Information RESULTS No Results REASON FOR VISIT DISCUSS LT TKA FOR 03/11/2020 MEDICAL (GENERAL) HISTORY Type [...] Treatment Notes Treatm ent Clinical Notes Feb, Pain in joint of left knee (ICD-10 - M25.562) Feb, Primary We will proceed with osteoarthritis of left total knee left knee (ICD-10 - arthroplasty. I M17.12) discussed with the patient risks and benefits associated with the procedure at length as well as postoperative rehabilitation and he expressed understanding. I discussed with the patient at length his diagnosis and treatment plan [...] expressed understanding. We will proceed with surgery next week. All questions were answered. PLAN OF TREATMENT Medication Medication Name Sig Start Date Stop Date Xarelto 10 MG 1 tablet Orally Once a day for 11 days Feb, [place] 7.5-325 MG 1 PO Q Orally 4-6 HRS PRN PAIN Feb, Treatment Notes Assessment Notes Clinical Notes Primary osteoarthritis of left knee We will proceed with lef t total knee arthroplasty. I discussed with the patient risks and benefits associated with the procedure at length as well as postoperative rehabilitation and he expressed understanding. I discussed with the patient at length his diagnosis and treatment plan [...] expressed understanding. We will proceed with surgery next week. All questions were answered. Next Appt Details 2 Weeks Reason:for 1st post op Provider Name:Pravin Trivedi, 2020-03-26 0 1:00:00 PM, [address], [place], [address], Provider Name:Gale Moreno, 2020-04-02 08:0 0:00 AM, [address], [place], [address], Follow Up:2 Weeksfor 1st post op Insurance Providers Payer Name Payer Payer Insured Name Patient Coverage Covera ge End Address Phone Relationship to Start Date Stanley e Insured [employer] [address] [address] [phone] [facility] [address] [phone]
[2020-03-11] MEDS ORDERED: CEFAZOLIN/SWI 2gm 2 GM/20 ML SYR ONE (06:18)
[2020-03-11] MEDS ORDERED: NA CHLORIDE 0.9% 1,000 ML ONE ×2 (06:18→10:05)
[2020-03-11] MEDS ORDERED: LIDOCAINE 2% MPF 5 ML VIAL ONE ×2 (06:48→07:06)
[2020-03-11] MEDS ORDERED: NS 0.9% VIAL 10 ML ONE ×2 (06:48→08:04)
[2020-03-11] MEDS ORDERED: FENTANYL CITR 100 MCG/2 ML ONE (06:49)
[2020-03-11] MEDS ORDERED: dexAMETHasone 10 MG/ML VIAL ONE ×2 (06:49→07:56)
[2020-03-11] MEDS ORDERED: MIDAZOLAM HCL 2 MG/2 ML INJ ONE (06:49)
[2020-03-11] MEDS ORDERED: BUPIVACAINE 0.25% PF 10 ML VIAL ONE (06:49)
[2020-03-11] MEDS ORDERED: propofoL 200 MG/20 ML VIAL IV ONE (07:06)
[2020-03-11] MEDS ORDERED: Ringers Lactate 1,000 ML IV ONE (07:22)
[2020-03-11] MEDS ORDERED: KETOROLAC 30 MG/ML INJ ONE (07:57)
[2020-03-11] MEDS ORDERED: KETAMINE HCL 500 MG/5 ML VIAL ONE (07:57)
[2020-03-11] MEDS ORDERED: ONDANSETRON 4 MG/2 ML VIAL ONE (07:57)
[2020-03-11] MEDS ORDERED: HYDROMORPHONE HCL 1 MG/ML INJ ONE ×2 (07:58→11:45)
[2020-03-11] MEDS ORDERED: TRANEXAMIC ACID 1,000 MG in NA CHLORIDE 0.9% 50 ML IV SCH (08:00)
[2020-03-11] MEDS: BUPIVACA 0.5%/EPI 0.0005%/PF 30 ML VIAL ONE ×2 (08:19→09:50)
[2020-03-11] MEDS ORDERED: GLYCOPYRROLATE 0.2 MG/ML SYR ONE (08:37)
[2020-03-11] MEDS ORDERED: EPHEDRINE SULF 50 MG/ML VIAL ONE (08:37)
--- NOTE | 2020-03-11 10:41 | P.BOP ---
Preoperative diagnosis: left knee osteoarthritis Postoperative diagnosis: same Primary procedure: left total knee arthroplasty Jewelry Estimator: NONE,NONE Estimated blood loss: 20 cc Specimen: left knee bone remnants Findings: see dictation Anesthesia: General Complications: None Implants: Biomet Jorge A Persona 10 CR femur, E tibia, 32 patella, 10 CR poly Fluids & blood products: per anesthesia record; TT: 102 @ 300 mmHg Transferred to: Recovery Room Condition: Good
[2020-03-11] MEDS ORDERED: ONDANSETRON 4 MG/2 ML VIAL IV PRN (10:42)
[2020-03-11] MEDS ORDERED: DOCUSATE NA 100 MG CAP PO PRN (10:42)
[2020-03-11] MEDS ORDERED: TRAMADOL HCL 50 MG TAB PO PRN (10:45)
[2020-03-11 11:25] LABS: Hematocrit 38.7 % (39.6-49.0)
--- NOTE | 2020-03-11 11:39 | RAD REPORT ---
EXAM DESCRIPTION: RAD - Knee Left 2 View - 03/11/2020 11:09 am CLINICAL HISTORY: Post Op Knee pain and swelling COMPARISON: Knee Left Wo Cont dated 01/31/2020 FINDINGS: Total knee arthroplasty has been performed. No unexpected hardware finding. Air is present in the joint. Multiple skin jessie are seen.
[2020-03-11 13:14] VITALS: O2SAT 94
[2020-03-11] MEDS ORDERED: MORPHINE 2 MG/ML SYR IV PRN (14:00)
[2020-03-11 14:05] VITALS: BMI 31.7
[2020-03-11 14:58] LABS: Urine Appearance CLEAR; Urine Bilirubin NEGATIVE (NEG); Urine Blood NEGATIVE (NEG); Urine Color YELLOW; Urine Glucose NEGATIVE (NEG); Urine Microscopic Reflex ORDER UMIC; Urine Protein NEGATIVE (NEG); Urine Urobilinogen 0.2 mg/dL (0.2-1.0)
[2020-03-11 15:06] LABS: Urine RBC <5 /HPF (NONE SEEN)
[2020-03-11 15:07] LABS: Urine Bacteria <20 /HPF (NONE SEEN)
[2020-03-11] MEDS: METFORMIN HCL 500 MG TAB PO SCH (16:28)
[2020-03-11] MEDS: CEFAZOLIN/SWI 2gm 2 GM/20 ML SYR IVP SCH (16:29)
[2020-03-11] MEDS: HYDROCODONE/APAP 7.5/325 MG TAB PO PRN ×2 (16:35→21:19)
[2020-03-11] MEDS: carvediloL 6.25 MG TAB PO SCH (21:15)
[2020-03-12] MEDS: CEFAZOLIN/SWI 2gm 2 GM/20 ML SYR IVP SCH ×2 (01:00→08:28)
[2020-03-12] MEDS: HYDROCODONE/APAP 7.5/325 MG TAB PO PRN ×2 (02:46→08:41)
[2020-03-12] MEDS: ENOXAPARIN 30 MG/0.3 ML SQ SCH ×2 (05:42→08:28)
[2020-03-12 05:57] LABS: Basophils % 0.5 % (0-1.3); Hematocrit 35.6 % (39.6-49.0); Lymphocytes % 4.4 % (15.3-44.8); MPV 9.2 fL (7.6-11.3); RBC Red Blood Cell Count 4.01 M/uL (4.33-5.43)
[2020-03-12 06:11] LABS: BUN Blood Urea Nitrogen 12 mg/dL (7-18); Bicarbonate 24 mmol/L (21-32); Glucose Level 151 mg/dL (74-106); Sodium Level 140 mmol/L (136-145)
[2020-03-12 08:29] LABS: Blood Morphology Comment NOT SEEN (NOT SEEN); Platelet Estimate ADEQ
[2020-03-12] MEDS: carvediloL 6.25 MG TAB PO SCH (08:31)
[2020-03-12] MEDS: METFORMIN HCL 500 MG TAB PO SCH (08:32)
[2020-03-12 08:33] VITALS: BP 138/77
[2020-03-12] MEDS ORDERED: HOME MED 1 EA UNK (Cetirizine Hcl [Cetirizine Hcl] 10 MG) PO SCH (09:00)
[2020-03-12] MEDS ORDERED: CETIRIZINE HCL 5 MG TABLET PO SCH (09:00)
[2020-03-12] MEDS ORDERED: ATORVASTATIN 80 MG TAB PO SCH ×2 (09:00→21:00)
[2020-03-12] MEDS ORDERED: HOME MED 1 EA UNK (Lisinopril [Zestril] 2.5 MG) PO SCH (09:00)
[2020-03-12] MEDS ORDERED: lisinopriL 5 MG TAB PO SCH (09:00)
[2020-03-12] MEDS ORDERED: DULOXETINE 30 MG CAP PO SCH (09:00)
[2020-03-12] MEDS ORDERED: CELECOXIB 100 MG CAPSULE PO SCH (09:00)
[2020-03-12 11:18] VITALS: TEMP 98.5
--- NOTE | 2020-03-12 12:47 | P.DS ---
Admission Date: 03/11/20 Discharge Date: 03/12/20 Disposition: DC HOME/HOME HEALTH CARE Discharge Condition: GOOD Reason for Admission: s/p L TKA Consultations: none Procedures: L TKA on 03/11/2020 Brief History of Present Illness: Archie underwent left TKA on 03/11/2020 and was admitted to the floor for observation Hospital Course: Underwent L TKA on 03/11/2020 without complication. Admitted to the floor and mobilized well with physical therapy. His pain was controlled and vital signs remained stable. Discharged on 03/12/2020 in stable condition. Vital Signs/Physical Exam: Temp Pulse Resp BP Pulse Ox 98.5 F 74 18 138/77 94 03/12/20 08:00 03/12/20 08:31 03/12/20 09:41 03/12/20 08:31 03/12/20 09:41 Laboratory Data at Discharge: WBC 23.2 K/uL (4.3-10.9) H* D 03/12/20 05:18 Hgb 11.8 g/dL (13.6-17.9) L 03/12/20 05:18 Hct 35.6 % (39.6-49.0) L 03/12/20 05:18 Plt Count 277 K/uL (152-406) 03/12/20 05:18 PT 10.9 SECONDS (9.5-12.5) 03/04/20 08:07 INR 0.92 03/04/20 08:07 APTT 30.5 SECONDS (24.3-36.9) 03/04/20 08:07 Sodium 140 mmol/L (136-145) 03/12/20 05:18 Potassium 4.0 mmol/L (3.5-5.1) 03/12/20 05:18 BUN 12 mg/dL (7-18) 03/12/20 05:18 Creatinine 0.76 mg/dL (0.55-1.3) 03/12/20 05:18 Glucose 151 mg/dL (74-106) H 03/12/20 05:18 Home Medications: Atorvastatin Calcium [Lipitor] 80 mg PO DAILY 11/23/17 carvediloL [Carvedilol] 6.25 mg PO BID 11/23/17 Cetirizine HCl 10 mg PO DAILY 03/04/20 Duloxetine [Cymbalta *] 60 mg PO DAILY 03/04/20 Lisinopril [Zestril] 2.5 mg PO DAILY 03/04/20 Metformin HCl [Glucophage*] 500 mg PO BIDWM 03/04/20 Multivitamin [Multivitamins] 1 each PO DAILY 03/04/20 Hydrocodone 7.5/APAP 325 [[place] 7.5/325 mg*] 1 tab PO Q4H PRN tab 03/12/20 Patient Discharge Instructions: keep dressing clean and dry; start Xarelto tomorrow 03/13/2020 in the morning and take once daily; begin working with HHPT Diet: ADA Activity: Weight bearing as tolerated Followup: Gale Moreno DO [Primary Care Provider] - Pravin Trivedi MD [ACTIVE - CAN ADMIT] -
--- NOTE | 2020-03-12 16:49 | P.OP ---
Preoperative diagnosis: left knee osteoarthritis Postoperative diagnosis: same Primary procedure: left total knee arthroplasty Secondary procedure: none Anesthesia: general Estimated blood loss: 20 cc Specimen: left knee bone remnants Findings: see dictation Operative Technique: Indication For Procedure: Archie is a 54 year-old male presenting to my clinic with signs, symptoms and x-ray findings consistent with a severe left knee osteoarthritis. I discussed with the patient at length risks and benefits associated with operative and nonoperative treatment. He had failed conservative treatment measures and had significant difficulties with ADLs secondary to his pain. We discussed operative treatment and elected to proceed with left total knee arthroplasty. He expressed understanding and elected to proceed with operative treatment. Description Of Procedure: After informed consent was obtained, the patient was identified in the preoperative holding area. The left lower extremity was marked. The patient was then taken to the PACU where he underwent a left lower extremity adductor canal block performed by Anesthesia. He was then taken to the operating room, transferred to the operating table in supine fashion, and placed under general anesthesia. His left lower extremity was then prepped and draped in usual sterile fashion. A time-out was initiated. The correct patient and procedure were confirmed and identified. The patient did receive his preoperative prophylactic antibiotics. The left lower extremity was then exsa nguinated and tourniquet was inflated to 300 mmHg. Approximately 15 cm longitudinal incision was made centered over the anterior aspect of the left knee. Dissection was then taken to the extensor mechanism and a medial parapatellar arthrotomy was performed. The patella was everted and dislocated laterally and the knee was flexed in the fat pad. Medial lateral meniscus was all excised exposing the distal femur. Patient was noted to have an ACL deficient knee and evidence of prior reconstruction. Excess hypertrophic synovium was also excised within the suprapatellar pouch. The patient had an MRI of his left knee preoperatively for surgical planning and creation of cutting blocks. The cutting block was then placed over the distal femur and pins were then placed. The distal femoral cutting block was then placed over the pins. Knee joint was then used to ensure proper depth cut and the distal femur was then cut. The chamfer cutting guide was then placed over the distal end of the femur. Anterior, posterior cuts as well as anterior and posterior chamfer cuts were then made again confirming proper depth of the cut using an Moises wing. Excess bone remnants were then sent to pathology for further evaluation. Next, attention was taken to the proximal tibia. A tibial jig and tibial cutting block was then placed on proximal aspect of the right tibia and locked into position. Pins were then placed and alignment guide was then used to confirm proper alignment of the cut and then coronal and sagittal planes. Once this was confirmed, the cutting jig was placed over the pins and the proximal tibia was cut. Sizing trays were then selected and size 10 mm spacer was used and there was good overall balance in flexion and extension. Next, the trial implants were then placed using the size 10 standard CR femur and a size E tibia with a 10 mm poly. There was overall good range of motion and good stability Trial implants were then removed. The wound was then irrigated thoroughly with normal saline and the knee was then injected with 30 cc of 0.5% Marcaine with epinephrine both in the posterior capsule and mediallateral gutters as well as quadriceps tendon and periosteum. The tibia was then punched. The femur was drilled. The cement was then prepared on the back table. Cement was then placed first on the tibial surface followed by size E tibia. Excess cement was removed with [place] elevators. Size 10 standard CR femur was then placed on the distal femur after cement was placed on the distal femur. Excess cement was then removed and a size 10 mm trial poly was then placed. The knee was held in extension as the cement hardened. Undersurface of the patella was prepared debriding osteophytes using rongeurs as well as osteophytes had been debrided off the proximal tibia with rongeurs and osteotomes to aid with the medial tightness. Cement was placed on the undersurface of the patella after it was cut and a size 32 patella was placed. Once the cement was hardened, the knee was ranged, there was good overall stability both in flexion, extension and as well as stability with varus and valgus stresses. Trial poly was then removed and a size 10 mm CR poly was then placed and locked into position. The knee was then ranged again. There was good overall range of motion both for flexion and extension with good stability. The wound was then irrigated again thoroughly with normal saline using pulse lavage. Tourniquet was let down. Hemostasis was achieved using Bovie electrocautery. Extensor mechanism was then approximated using a #1 Vicryl bothin interrupted and running fashion. The fascia was then approximated using 0 Vicryl. Subcutaneous tissue was approximated with a 2-0 Vicryl. Skin was approximated using jessie. Sterile dressings were applied. The patient was awakened and transferred back in stable condition Complications: None Implants: Biomet Jorge A Persona 10 STD CR femur, E tibia, 32 patella, 10 mm CR poly Fluids & blood products: per anesthesia record Transferred to: Recovery Room Condition: Good
== END 2020-03-12 13:28 | disposition home health service (06) ==
LOC: OR 05:50 → 2ND 13:26
PROVIDERS: ADMIT Orthopaedic Surgery Sports Medicine; ATTEND Orthopaedic Surgery Sports Medicine
PROC: 0SRD0J9 Replacement of Left Knee Joint with Synthetic Substitute, Cemented, Open Approach (ICD-10-PCS; principal; 2020-03-11 07:30)
DX: M17.12 Unilateral primary osteoarthritis, left knee (principal); I10 Essential (primary) hypertension; E11.9 Type 2 diabetes mellitus without complications; Z79.84 Long term (current) use of oral hypoglycemic drugs; R06.83 Snoring; Z95.1 Presence of aortocoronary bypass graft; I25.10 Atherosclerotic heart disease of native coronary artery without angina pectoris; Z79.82 Long term (current) use of aspirin; Z20.828 Contact with and (suspected) exposure to other viral communicable diseases; E78.5 Hyperlipidemia, unspecified; F41.9 Anxiety disorder, unspecified; M81.0 Age-related osteoporosis without current pathological fracture; F17.210 Nicotine dependence, cigarettes, uncomplicated
CPT/HCPCS: 93005; 87088; 85025 ×2; 87086; 80048 ×2; 36415 ×3; 85610; 82947 ×5; 88304; 88311; 85730; 85018; 85014; 71046; 73560; 97110; 97116 ×3; 97139 ×2; 97161; 97530; 94010 ×2; 27447; U0002; J2704; J1650; J2250; J3010; J1100 ×2; J1170 ×2; J0690 ×2; J7120; J7030 ×2; J2405 ×2; 81003; 81015; 88305; G0378

== ENCOUNTER 2020-05-06 05:56 | Day surgery (SDC) | payer OTHER ==
[2020-04-30 15:27] LABS: Absolute Lymphocytes (CBC) 2.7 K/uL (0.7-4.9); Hematocrit 38.8 % (39.6-49.0); Lymphocytes % 24.9 % (15.3-44.8); MPV 8.6 fL (7.6-11.3); RBC Red Blood Cell Count 4.42 M/uL (4.33-5.43)
[2020-04-30 15:35] LABS: Protime INR 1.01
[2020-04-30 15:41] LABS: BUN Blood Urea Nitrogen 11 mg/dL (7-18); Bicarbonate 28 mmol/L (21-32); Glucose Level 80 mg/dL (74-106); Sodium Level 139 mmol/L (136-145)
--- OUTSIDE RECORDS SUMMARY | 2020-05-06 05:59 | XMS REPORT | Continuity of Care Document ---
:1965 Author Organization [facility] t Address [address] [place] [address] Care Team Providers Name Role Phone Unavailable [...] [facility] Cetirizine Cetirizine 2020- No Na [...] [facility] Plavix Plavix Yes Na Moreno [address] [facility] Carvedilol Carvedilol Yes Na Moreno [facility] Levothyroxi Levothyroxi Yes Na Moreno [...] Date/Time Type Type Clinicians Facility Department ID 2020-04-28 2020-04-28 Outpatient [facility] [id number] [facility] 2020-04-28 2020-04-28 Outpatient [facility] [id number] [facility] 2020-04-28 2020-04-28 Outpatient [facility] [id number] [facility] 2020-04-23 2020-04-23 Outpatient [facility] [id number] [facility] 2020-04-02 2020-04-02 [facility] [id number] [facility] 2020-04-01 2020-04-01 [facility] [id number] [facility] 2020-03-26 2020-03-26 [facility] [id number] [facility] 2020-03-03 2020-03-03 [facility] [id number] [facility] 2020-02-20 2020-02-20 [facility] [id number] [facility] 2020-01-16 2020-01-16 [facility] [id number] [facility] 2020-01-01 2020-01-01 [facility] [id number] [facility] 2019-12-31 2019-12-31 Out[facility] [id number] [facility] 2019-11-20 2019-11-20 [facility] [id number] [address] [facility]20[facility]20:[address] [facility] 2019-11-14 2019-11-14 [facility] [id number] 10[facility]18:[facility] 10:18:[address] [facility] 2019-08-20 2019-08-20 [facility] [id number] 09:40:00 09:40:[address] [facility] - [facility] 2019-05-22 2019-05-22 [facility] [id number] 09:40[facility]00 09:40:[facility] [place] [employer] [facility] 2019-05-08 2019-05-08 [facility] [id number] 08[facility]20:00 08:20:00 [place] [employer] [place] [facility] 2019-02-13 2019-02-13 [facility] [id number] 15:58:00 15:58:00 [place] [employer] [place] [facility] 2019-02-12 2019-02-12 [facility] [id number] 08:20:00 08:20:00 [place] [employer] [facility] 2018-11-28 2018-11-28 [facility] [id number] 12:43:00 12:43:00 [place] [employer] [facility] 2018-11-13 2018-11-13 [facility] [id number] 08[facility]40:00 08:40:00 [place] [employer] [facility] 2018-05-07 2018-05-07 [facility] [id number] 08:45:00 08:45:00 [place] [employer] [facility] 2018-03-22 2018-03-22 [facility] [id number] [facility] 09:45:00 09:45:00 [place] [employer] [facility] Results This patient has no known results.
--- OUTSIDE RECORDS SUMMARY | 2020-05-06 06:00 | XMS REPORT ---
:1965 Author Organization [facility] Address [address] [place] [address] Care Team Providers Name Role Phone Trivedi Unavailable [phone] PROBLEMS Type Condition ICD9-CM [id number] Onset Condition SNOMED Code Notes Code Code Dates Status Problem Gastroesophageal K21.9 Active 429363613 reflux disease, esophagitis presence not specified Problem Osteoarthritis of M15.9 Active 198647274 multiple joints, unspecified osteoarthritis type Problem Hypertension I10 Active 41766838 Problem Anxiety F41.9 Active 67099645 Problem Vitamin D E55.9 Active 94422206 deficiency Problem Moderately severe F32.2 Active 410394961 depression Problem Depression with F41.8 Active 25527747 anxiety Problem Heart disease I51.9 Active 32845405 Problem Osteoporosis M81.0 Active 61876009 Problem Hyperlipemia E78.5 Active 00770086 Problem Body temperature R68.89 Active 941258528 low Problem Seasonal allergic J30.2 Active 048615833 rhinitis, unspecified trigger Problem Subclinical E03.9 Active 23180776 hypothyroidism Problem Decreased hearing H91.92 Active 259026549 of left ear Problem Daytime somnolence R40.0 Active 225893518567 Problem Allergic rhinitis, J30.9 Active 17177935 unspecified seasonality, unspecified trigger Problem Other chronic pain G89.29 Active 93069850 Problem Presence of left Z96.652 Active 199083767060 artificial knee joint Problem Atherosclerotic 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 823592721 heart disease of [place] coronary artery without angina pectoris Problem 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 891607208502930 left knee Problem Presence of Z95.5 Active 654328669 coronary angioplasty implant and graft Problem Sinus problem J34.9 Active Problem Leukocytosis, D72.829 Active 784502863 unspecified type Problem Primary M17.12 Active 391194432044019 osteoarthritis of left knee Problem Status post total Z96.652 Active 3350060347572 left knee replacement Problem Aftercare Z47.1 Active 158619827 following joint replacement surgery ALLERGIES No Known Allergies ENCOUNTERS from 1965 to 2020-04-28 Encounter Location Date Provider Diagnosis [facility], [place] [address] IMMUNIZATIONS No Information SOCIAL HISTORY Tobacco Use: [...] a drink containing alcohol in the past year? No Points 0 Interpretation Negative Tobacco Use/Smoking Question Answer Notes Additional Findings: Tobacco User Moderate cigarette smoker (10-19 cigs/day) Are you a current smoker REASON FOR REFERRAL No Information VITAL SIGNS No information MEDICATIONS Medication SIG (Take, Route, Notes Start Date End Date Status Frequency, Duration) Metformin HCl 500 MG 1 tablet with a meal Active Orally twice a day for 90 days Amoxicillin-Pot Not-Takin g Clavulanate Lisinopril 2.5 MG TAKE ONE (1) Activ e TABLET(S) BY MOUTH ONCE A DAY. for 90 Aspirin 81 MG 1 tablet Orally Once A ctive a day for 90 days Plavix 75 MG 1 tablet Orally Once No t-Taking a day for 90 days Flonase 50 MCG/ACT 2 spray in each A ctive nostril Nasally Once a day for 30 day(s) Fluticasone Propionate No t-Taking Hydrocodone-Acetaminophen 1 tablet as needed Not-Taking 10-325 MG Orally every 6 hrs LISINOPRIL 2.5 ONE ORAL DAILY for 90 Active days Levothyroxine Sodium 50 TAKE ONE -1 TABLET(S) Active MCG BY MOUTH EVERY MORNING ON AN EMPTY STOMACH. Orally Once a day for 90 days Sulfamethoxazole-Trimetho Not-Taking prim Duloxetine HCl 60 MG 1 capsule Orally Once Active a day for 30 days Albuterol Sulfate HFA 108 2 puffs Inhalation Apr, Not-Taking (90 Base) MCG/ACT every 6 hours prn sob for 30 days Lipitor 80 MG 1 tablet Orally Once A ctive a day for 90 days BusPIRone HCl 15 MG 1 tablet Orally Twice Active a day Prilosec 20 MG 1 capsule Orally Once Not-Taking a day Atorvastatin Calcium Acti ve Levothyroxine Sodium 50 1 tablet on an empty Active MCG stomach in the morning Orally Once a day for 90 days Cetirizine HCl 10 MG TAKE ONE (1) Ac tive TABLET(S) BY MOUTH ONCE A DAY. for 90 Carvedilol 6.25 MG as directed Orally Active twice a day for 90 days Clopidogrel Bisulfate Not -Taking [place] 7.5-325 MG 1 PO Q Orally 4-6 HRS Feb, Active PRN PAIN Duloxetine HCl 60 MG TAKE ONE (1) Ac tive CAPSULE(S) BY MOUTH ONCE A DAY. Xarelto 10 MG 1 tablet Orally Once Feb, Active a day for 11 days Doxycycline Hyclate Not-T aking PROCEDURES No Information RESULTS No Results REASON FOR VISIT CPM ORDER MEDICAL (GENERAL) HISTORY Type Description Date Medical History Hypertension Medical History Hyperlipemia Medical History Anxiety Medical History Heart disease Medical History Osteoporosis Medical History Sinus problem Medical History Hypertension Medical History Hyperlipemia Medical History Anxiety Medical History Heart disease Medical History Osteoporosis Medical History Sinus problem Surgical History Knee Surgery Surgical History Heart Cath Surgical History Heart Surgery-Triple Bypass Surgical History LEFT TOTAL KNEE 03/11/2020 Hospitalization History LEFT TOTAL KNEE Goals Section No Information Health Concerns No Information MEDICAL EQUIPMENT No Information MENTAL STATUS No Information FUNCTIONAL STATUS No Information ASSESSMENTS No Information PLAN OF TREATMENT Next Appt Details Provider Name:Gale Galaviz Moreno, 2020-05-27 08:0 0:00 AM, [address], [address], [place], [address], Provider Name:Gale Galaviz Moreno, 2020-06-03 08:0 0:00 AM, [address], [address], [place], [address], Insurance Providers Payer Name Payer Payer Insured Name Patient Coverage Covera End Address Phone Relationship to Start Date Stanley e Insured [employer] [address] [address] [phone] Archie Cortes self [facility] [phone]
--- OUTSIDE RECORDS SUMMARY | 2020-05-06 06:00 | XMS REPORT ---
:1965 Author Organization [facility] Address [address] [place] [address] Care Team Providers Name Role Phone Trivedi Unavailable [phone] PROBLEMS Type Condition ICD9-CM UUB49-DP Onset Condition SNOMED Code Notes Code Code Dates Status Problem Gastroesophageal K21.9 Active 035654740 reflux disease, esophagitis presence not specified Problem Osteoarthritis of M15.9 Active 099117663 multiple joints, unspecified osteoarthritis type Problem Hypertension I10 Active 03606211 Problem Anxiety F41.9 Active 46537174 Problem Vitamin D E55.9 Active 59009204 deficiency Problem Moderately severe F32.2 Active 236486933 depression Problem Depression with F41.8 Active 66603597 anxiety Problem Heart disease I51.9 Active 48459792 Problem Osteoporosis M81.0 Active 72560219 Problem Hyperlipemia E78.5 Active 31814214 Problem Body temperature R68.89 Active 874171158 low Problem Seasonal allergic J30.2 Active 751453054 rhinitis, unspecified trigger Problem Subclinical E03.9 Active 33946491 hypothyroidism Problem Decreased hearing H91.92 Active 070752031 of left ear Problem Daytime somnolence R40.0 Active 774642507625 Problem Allergic rhinitis, J30.9 Active 87657171 unspecified seasonality, unspecified trigger Problem Other chronic pain G89.29 Active 38823105 Problem Presence of left Z96.652 Active 082525592244 artificial knee joint Problem Atherosclerotic 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 219988450 heart disease of [place] coronary artery without angina pectoris Problem 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 929448312353755 left knee Problem Presence of Z95.5 Active 772018877 coronary angioplasty implant and graft Problem Sinus problem J34.9 Active Problem Leukocytosis, D72.829 Active 305477553 unspecified type Problem Primary M17.12 Active 844952413654200 osteoarthritis of left knee Problem Status post total Z96.652 Active 8995452158869 left knee replacement Problem Aftercare Z47.1 Active 396512980 following joint replacement surgery ALLERGIES No Known Allergies ENCOUNTERS from 1965 to 2020-04-28 Encounter Location Date Provider Diagnosis [facility]note 3[facility] Apr, [place] [address] IMMUNIZATIONS No Information SOCIAL HISTORY Tobacco Use: [...] for 90 days Clopidogrel Bisulfate Not -Taking [place] 7.5-325 MG 1 PO Q Orally 4-6 HRS Feb, Active PRN PAIN Duloxetine HCl 60 MG TAKE ONE (1) Ac tive CAPSULE(S) BY MOUTH ONCE A DAY. Xarelto 10 MG 1 tablet Orally Once Feb, Active a day for 11 days Doxycycline Hyclate Not-T aking PROCEDURES No Information RESULTS No Results REASON FOR VISIT dictation MEDICAL (GENERAL) HISTORY Type Description Date Medical [...] 0:00 AM, [address], [address], [place], [address], Provider Name:Gale Galaviz Moreno, 2020-06-03 08:0 0:00 AM, [address], [address], [place], [address], Insurance Providers Payer Name Payer Payer Insured Name Patient Coverage Covera End Address Phone Relationship to Start Date Stanley e Insured [employer] [address] [address] [phone] Archie Cortes self [facility] 78 [phone]
--- OUTSIDE RECORDS SUMMARY | 2020-05-06 06:00 | XMS REPORT ---
:1965 Author Organization [facility] Address [address] [place] [address] Care Team Providers Name Role Phone Trivedi Unavailable [phone] PROBLEMS Type Condition ICD9-CM [id number] Onset Condition SNOMED Code Notes Code Code Dates Status Problem Gastroesophageal K21.9 Active 140167784 reflux disease, esophagitis presence not specified Problem Osteoarthritis of M15.9 Active 496398336 multiple joints, unspecified osteoarthritis type Problem Hypertension I10 Active 68490699 Problem Anxiety F41.9 Active 25761578 Problem Vitamin D E55.9 Active 20598359 deficiency Problem Moderately severe F32.2 Active 435988497 depression Problem Depression with F41.8 Active 93024941 anxiety Problem Heart disease I51.9 Active 96679707 Problem Osteoporosis M81.0 Active 61297319 Problem Hyperlipemia E78.5 Active 57393029 Problem Body temperature R68.89 Active 445396539 low Problem Seasonal allergic J30.2 Active 947413304 rhinitis, unspecified trigger Problem Subclinical E03.9 Active 31892970 hypothyroidism Problem Decreased hearing H91.92 Active 107713790 of left ear Problem Daytime somnolence R40.0 Active 318057358760 Problem Allergic rhinitis, J30.9 Active 62945660 unspecified seasonality, unspecified trigger Problem Other chronic pain G89.29 Active 61088294 Problem Presence of left Z96.652 Active 489583470540 artificial knee joint Problem Atherosclerotic 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 262302517 heart disease of [place] coronary artery without angina pectoris Problem 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 473898862028526 left knee Problem Presence of Z95.5 Active 107178975 coronary angioplasty implant and graft Problem Sinus problem J34.9 Active Problem Leukocytosis, D72.829 Active 596224174 unspecified type Problem Primary M17.12 Active 787176378984881 osteoarthritis of left knee Problem Status post total Z96.652 Active 1298944396206 left knee replacement Problem Aftercare Z47.1 Active 965323785 following joint replacement surgery ALLERGIES No Known Allergies ENCOUNTERS from 1965 to 2020-04-29 Encounter Location Date Provider Diagnosis [facility], [place] [address] IMMUNIZATIONS No Information SOCIAL HISTORY Tobacco Use: [...] for 90 days Clopidogrel Bisulfate Not -Taking [place] [facility] 7.5-325 MG 1 PO Q Orally 4-6 HRS Feb, Active PRN PAIN Duloxetine HCl 60 MG TAKE ONE (1) Ac tive CAPSULE(S) BY MOUTH ONCE A DAY. Xarelto 10 MG 1 tablet Orally Once Feb, Active a day for 11 days Doxycycline Hyclate Not-T aking PROCEDURES No Information RESULTS No Results REASON FOR VISIT URGENT SURGICAL CLEARANCE MEDICAL (GENERAL) HISTORY Type Description Date Medical [...] TREATMENT Next Appt Details Provider Name:Gale Galaviz Josh, 2020-05-27 08:0 0:00 AM, [address], [address], [place], [address], Provider Name:Gale Galaviz Moreno, 2020-06-03 08:0 0:00 AM, [address], [address], [place], [address], Insurance Providers Payer Name Payer Payer Insured Name Patient Coverage Covera End Address Phone Relationship to Start Date Stanley e Insured [employer] [address] [address] [phone] Archie Cortes self [facility] [address] [phone]
[2020-05-06] MEDS ORDERED: NA CHLORIDE 0.9% 1,000 ML ONE (06:32)
[2020-05-06] MEDS ORDERED: NS 0.9% VIAL 10 ML ONE (06:36)
[2020-05-06] MEDS ORDERED: LIDOCAINE 2% MPF 5 ML VIAL ONE (06:36)
[2020-05-06] MEDS ORDERED: dexAMETHasone 10 MG/ML VIAL ONE (06:36)
[2020-05-06] MEDS ORDERED: MIDAZOLAM HCL 2 MG/2 ML INJ ONE ×2 (06:37→07:02)
[2020-05-06] MEDS ORDERED: FENTANYL CITR 100 MCG/2 ML ONE (06:37)
[2020-05-06] MEDS ORDERED: propofoL 200 MG/20 ML VIAL IV ONE (07:19)
[2020-05-06] MEDS ORDERED: LIDOCAINE 1% MPF 2 ML AMPULE ONE (07:21)
[2020-05-06] MEDS ORDERED: KETOROLAC 30 MG/ML INJ ONE (07:52)
--- NOTE | 2020-05-06 07:52 | P.BOP ---
Preoperative diagnosis: Left total knee arthroplasty contracture Postoperative diagnosis: same Primary procedure: manipulation under anesthesia left TKA Diesel Fitter Mechanic: NONE,NONE Estimated blood loss: none Specimen: none Findings: see dictation Anesthesia: General Complications: None Implants: none Fluids & blood products: per anesthesia record Transferred to: Recovery Room Condition: Good
[2020-05-06 08:20] VITALS: TEMP 96.9
[2020-05-06 08:40] VITALS: BP 131/76; O2SAT 97
--- NOTE | 2020-05-06 08:49 | RAD REPORT ---
EXAM DESCRIPTION: RAD - Knee Left 2 View - 05/06/2020 8:23 am CLINICAL HISTORY: s/p manipulation of Left total knee under anesthes COMPARISON: Knee Left 3 View dated 04/24/2020; Knee Left 2 View dated 03/11/2020 FINDINGS: Left total knee prosthesis in place. No radiographic evidence for loosening. No fracture o r acute finding of the [place] bone. Dense arterial tree calcifications are present.No large joint eff usion identifiable. No suspicious soft tissue finding. IMPRESSION: No acute bone, joint or implant finding.
--- NOTE | 2020-05-11 14:12 | OP ---
Date of Procedure: 05/06/2020 Surgeon: Pravin Trivedi MD Preoperative Diagnosis: Left total knee arthroplasty contracture. Postoperative Diagnosis: Left total knee arthroplasty contracture. Procedure Performed: Manipulation under anesthesia, left total knee arthroplasty. Anesthesia: General LMA. Fluids: Per Anesthesia record. Estimated Blood Loss: None. Complications: None. Indication For Procedure: Archie is a 55-year-old male who presented to my clinic with stiffness after total knee arthroplasty. Its over 6 weeks ago. The patient had been working with physical therapy, but unfortunately, he had continued limitation with flexion of his knee. I discussed with the patient at length risks and benefits associated with manipulation under anesthesia. He expressed understanding and elected to proceed with operative treatment. Description Of Procedure: After informed consent was obtained, the patient was identified in the preoperative holding area. The left lower extremity was marked. The patient was then taken to the PACU, where he underwent an adductor canal block by Anesthesia to aid in postoperative pain control. The patient was then brought back to the operating room, transferred to the operative table in supine fashion and placed under general LMA anesthesia. The left lower extremity was then examined. The patient was noted to have approximately 0 to 90 degrees prior to the manipulation. With the hip flexed 90 degrees, gentle pressure was placed on the proximal tibia to aid with flexion of the knee. During manipulation the knee after manipulation pops were felt with the release of scar tissue. The knee was flexion range was increased to 125 degrees. The patient was then awakened and transferred back in stable condition. Postoperative Plan: We will proceed with aggressive postop physical therapy. The patient also was given a CPM machine to work on maintenance of his range of motion. CV/MODL Voice ID: [id number] Report ID: [id number] KAVEH
== END 2020-05-06 09:05 | disposition home or self-care (01) ==
LOC: OR 05:56
PROVIDERS: ATTEND Orthopaedic Surgery Sports Medicine
PROC: 0SNDXZZ Release Left Knee Joint, External Approach (ICD-10-PCS; principal; 2020-05-06 07:30)
DX: M17.12 Unilateral primary osteoarthritis, left knee (principal); M24.562 Contracture, left knee; Z96.652 Presence of left artificial knee joint; Z47.1 Aftercare following joint replacement surgery; Z20.822 Contact with and (suspected) exposure to COVID-19
CPT/HCPCS: 85025; 80048; 36415; 85610; 82947 ×2; 85730; 73560; 27570; U0002; J2704; J2250 ×2; J3010; J1100; J2001; J7030